=== PATIENT | female | born 1960 | race Caucasian/White ===

== ENCOUNTER 2016-03-07 08:56 | Day surgery (SDC) | payer BC ==
[2016-03-01 15:49] VITALS: BMI 33.6
[~2016-03-07 08:56] MED LIST: LACTATED RINGERS 1,000 ML IV SCH; LIDOCAINE 1% 20 ML VIAL (10MG/ML) FOR IV START INTRADERMA PRN
[2016-03-07 09:13] VITALS: RESP 16; TEMP 97.5
[2016-03-07] MEDS ORDERED: PROPOFOL 10 MG/ML 20 ML VIAL IV ONE (09:25)
--- NOTE | 2016-03-07 09:42 | P.PCN ---
Date of Procedure: 03/07/16 Procedure(s) Performed: BRIEF HISTORY: Patient is a 55-year-old pleasant white female, scheduled for an elective colonoscopy as a part of evaluation of left lower quadrant abdominal pain, change in bowel habits and intermittent rectal bleeding. PROCEDURE PERFORMED: Colonoscopy snare polypectomy. PREOPERATIVE DIAGNOSIS: Change in bowel habits and blood in the stool. IV sedation per Anesthesia. PROCEDURE: After informed consent was obtained, the patient, was brought into the endoscopy unit. IV conscious sedation was administered by Anesthesia under continuous monitoring. Initially the Olympus CF-160 flexible video colonoscope was then inserted in the rectum, gradually advanced into the cecum without any difficulty. Careful examination was performed as the scope was gradually being withdrawn. Ileocecal valve and the appendiceal orifice were visualized and appeared normal. Prep was excellent. Mucosa of the cecum, ascending colon, transverse colon, descending colon, sigmoid colon, and rectum appeared normal. Scattered sigmoid diverticulosis seen. In the proximal rectum there was a 1 cm polyp removed by snare polypectomy. Retroflexion was performed in the rectum and no lesions were seen. The patient tolerated the procedure well. IMPRESSION: 1 cm proximal rectal polyp status post polypectomy Scattered sigmoidal diverticulosis RECOMMENDATIONS: Findings of this examination were discussed with the patient as well as her family. She was advised to follow with the biopsy results. If the biopsy shows a tubular adenoma she can have a repeat colonoscopy in 5 years.
[2016-03-07 09:46] VITALS: PULSE 72
[2016-03-07 10:01] VITALS: BP 109/71
== END 2016-03-07 10:26 | disposition home or self-care (01) ==
LOC: ORWHC2ENDO 08:56
PROVIDERS: ATTEND Internal Medicine Gastroenterology
DX: D12.8 Benign neoplasm of rectum (principal); K57.30 Diverticulosis of large intestine without perforation or abscess without bleeding; E78.5 Hyperlipidemia, unspecified; F32.9 Major depressive disorder, single episode, unspecified; K21.9 Gastro-esophageal reflux disease without esophagitis; J45.909 Unspecified asthma, uncomplicated; Z79.82 Long term (current) use of aspirin; Z79.899 Other long term (current) drug therapy; Z88.1 Allergy status to other antibiotic agents
CPT/HCPCS: 88305; 45385; J2704

== ENCOUNTER → 2016-03-23 | Outpatient (CLI) | payer BC ==
--- NOTE | 2016-03-23 11:18 | US ---
EXAMINATION TYPE: US pelvic complete DATE OF EXAM: 03/23/2016 11:05 AM CLINICAL HISTORY: Pelvic Pain R10.2. Pt states LLQ pain TECHNIQUE: Transabdominal (TA) Date of LMP: 2000 EXAM MEASUREMENTS: Uterus: 7.9 x 3.1 x 3.3 cm Endometrial Stripe: 0.7 cm Right Ovary: 2.1 x 1.4 x 2.2 cm Left Ovary: 1.8 x 1.1 x 1.4 cm 1. Uterus: Anteverted Appeared wnl 2. Endometrium: wnl 3. Right Ovary: wnl 4. Left Ovary: wnl 5. Bilateral Adnexa: wnl 6. Posterior cul-de-sac: wnl No abnormality visualized to account for pt's symptoms IMPRESSION: Negative study
== END | disposition home or self-care (01) ==
LOC: RADUSWWP 10:16
PROVIDERS: ATTEND Internal Medicine
DX: R10.2 Pelvic and perineal pain (principal)
CPT/HCPCS: 76856

== ENCOUNTER 2018-01-04 08:55 | Emergency (ER) | payer BC, OTHER ==
[2018-01-04 09:15] VITALS: BP 110/66; PULSE 67; RESP 18; TEMP 98.3
--- NOTE | 2018-01-04 10:01 | ED ---
Eye Problem HPI - General Chief complaint: Eye Problems Stated complaint: rash on eye Time Seen by Provider: 01/04/18 09:19 Source: patient, RN notes reviewed, old records reviewed Mode of arrival: ambulatory Limitations: no limitations - History of Present Illness Initial comments: Patient is a 57-year-old female presents emergency Department chief complaint of. Take rash over bilateral upper eyelids lower eyelids. She was seen by medics breath started on antibiotic drops, steroids. She reports that she felt was getting somewhat better but after discontinuing steroid she reports that the rash week occur. Patient states that she has had no no exposures. She denies any other symptoms at this time. - Related Data Home Medications Medication Instructions Recorded Confirmed Aspirin 2 tab PO DAILY 06/09/14 03/01/16 PARoxetine [Paxil] 20 mg PO HS 06/09/14 03/01/16 Simvastatin [Zocor] 20 mg PO HS 06/09/14 03/01/16 Albuterol Inhaler [Ventolin Hfa 1 - 2 puff INHALATION Q6HR PRN 03/01/16 03/01/16 Inhaler] Omeprazole [PriLOSEC] 20 mg PO AC-BID 03/01/16 03/01/16 Previous Rx's Medication Instructions Recorded Erythromycin Ophth Oint [Romycin 1 applic BOTH EYES QID #1 tube 01/04/18 Ophth Oint] Ketotifen 0.025% Ophth Soln 1 drop BOTH EYES BID #1 bottle 01/04/18 [Zaditor] methylPREDNISolone Dose Pack 4 mg PO DIRECTED #21 package 01/04/18 [Medrol Dose Pack] Allergies Allergy/AdvReac Type Severity Reaction Status Date / Time ciprofloxacin [From Cipro] AdvReac Anaphylaxis Verified 01/04/18 09:14 ciprofloxacin HCl AdvReac Anaphylaxis Verified 01/04/18 09:14 [From Cipro] Review of Systems ROS Statement: Those systems with pertinent positive or pertinent negative responses have been documented in the HPI. ROS Other: All systems not noted in ROS Statement are negative. 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 C/O ABD PAIN AFTER BM, MUCOUS IN STOOL. HX Migraines. Actinic karatosis to scalp History of Any Multi-Drug Resistant Organisms: None Reported Past Surgical History: Section, Cholecystectomy, Orthopedic Surgery Additional Past Surgical History / Comment(s): C-Sections x 2, d and c, L shoulder arthroscopy Past Anesthesia/Blood Transfusion Reactions: No Reported Reaction Past Psychological History: Anxiety, Depression Smoking Status: Never smoker Past Alcohol Use History: Occasional Past Drug Use History: None Reported - Past Family History Daughter(s) Family Medical History: Cancer Father Family Medical History: Coronary Artery Disease (CAD), Myocardial Infarction ([place] ) Additional Family Medical History / Comment(s): Father had CABG, AAA repair, AICD, CCath with stenting. Mother Family Medical History: Hypertension, Thyroid Disorder General Exam - General Exam Comments Initial Comments: This is a 57-year-old female. Alert and oriented. Patient appears in no acute distress. Limitations: no limitations General appearance: alert, in no apparent distress Head exam: Present: atraumatic, normocephalic, normal inspection Eye exam: Present: PERRL, EOMI, periorbital swelling (Bilateral periorbital erythema and swelling, reports tenderness over the upper eyelid. Skin is flaking and dry appearing.), periorbital tenderness. Absent: normal appearance , scleral icterus, conjunctival injection ENT exam: Present: normal exam, mucous membranes moist Neck exam: Present: normal inspection. Absent: tenderness, meningismus, lymphadenopathy Respiratory exam: Present: normal lung sounds bilaterally. Absent: respiratory distress, wheezes, rales, rhonchi, stridor Cardiovascular Exam: Present: regular rate, normal rhythm, normal heart sounds. Absent: systolic murmur, diastolic murmur, rubs, gallop, clicks Back exam: Present: normal inspection Neurological exam: Present: alert, oriented X3, CN II-XII intact Psychiatric exam: Present: normal affect, normal mood Course Vital Signs 01/04/18 09:11 Temperature 98.3 F Pulse Rate 67 Respiratory 18 Rate Blood Pressure 110/66 O2 Sat by Pulse 98 Oximetry Medical Decision Making - Medical Decision Making 57-year-old female presents return today with a rash over bilateral upper eyelids. Patient appears to have blepharitis. Patient's visual acuity intact, eyes itself had no significant drainage or erythema. No pain with extra ocular movements or with bright lights. Funduscopic exam was unremarkable.Patient at this time will be started on oral steroid and in the attic ointment over the eye. Discussed falling up with ophthalmology and primary care physician. Patient agrees to treatment plan will comply. Return parameters were discussed. Discussed the differential rheumatologic disorders as well as possibility of rosacea. Disposition Clinical Impression: Blepharitis of both eyes Disposition: HOME SELF-CARE Condition: Good Instructions: Blepharitis (ED), Rosacea (ED) Additional Instructions: Patient advised to apply the ointment over the eyelid as directed. Follow-up with ophthalmology and primary care physician. Patient should take the steroids and continued antihistamines as prescribed. Return to the emergency department if any alarming signs or symptoms occur. Prescriptions: Erythromycin Ophth Oint [Romycin Ophth Oint] 1 applic BOTH EYES QID #1 tube Ketotifen 0.025% Ophth Soln [Zaditor] 1 drop BOTH EYES BID #1 bottle methylPREDNISolone Dose Pack [Medrol Dose Pack] 4 mg PO DIRECTED #21 package Is patient prescribed a controlled substance at d/c from ED?: No Referrals: Praveen Marquez MD [Primary Care Provider] - 1-2 days Zeferino Hoyt MD [STAFF PHYSICIAN] - 1-2 days Time of Disposition: 09:59
== END 2018-01-04 10:05 | disposition home or self-care (01) ==
LOC: EC 08:55
DX: H01.004 Unspecified blepharitis left upper eyelid (principal); H01.001 Unspecified blepharitis right upper eyelid; J45.909 Unspecified asthma, uncomplicated; E78.5 Hyperlipidemia, unspecified; F41.9 Anxiety disorder, unspecified; F32.9 Major depressive disorder, single episode, unspecified; Z79.82 Long term (current) use of aspirin; Z79.899 Other long term (current) drug therapy; Z88.1 Allergy status to other antibiotic agents
CPT/HCPCS: 99283

== ENCOUNTER → 2018-05-08 | Outpatient (CLI) | payer OTHER ==
--- NOTE | 2018-05-08 16:07 | XR ---
EXAMINATION TYPE: XR shoulder complete LT DATE OF EXAM: 05/08/2018 CLINICAL HISTORY: Left shoulder pain after a fall TECHNIQUE: Three views of the left shoulder are obtained. COMPARISON: None. FINDINGS: There is no acute fracture/dislocation evident in the left shoulder. Osseous cystic change and degenerative within the humeral head. The acromioclavicular and glenohumeral joint spaces appear within normal limits. The visualized ribs are intact and unremarkable. IMPRESSION: There is no acute fracture or dislocation in the left shoulder.
== END | disposition home or self-care (01) ==
LOC: RADXRMAIN 15:38
PROVIDERS: ATTEND Emergency Medicine
DX: S43.402A Unspecified sprain of left shoulder joint, initial encounter (principal)

== ENCOUNTER → 2018-05-23 | Outpatient (CLI) | payer OTHER ==
--- NOTE | 2018-05-25 00:01 | MR ---
EXAMINATION TYPE: MR shoulder LT wo con DATE OF EXAM: 05/23/2018 COMPARISON: Left shoulder x-ray May 08, 2018 HISTORY: Sprain of left shoulder joint per order. Fall twisting injury April 07, 2018 with pain and difficulty raising arm overhead, history of shoulder arthroscopy 2002 per patient. TECHNIQUE: Multiplanar, multisequence imaging of the left shoulder is performed without contrast. FINDINGS: Rotator Cuff: There is increased signal involving the distal supraspinatus and infraspinatus tendons. Articular surface involving the anterior two thirds fibers infraspinatus tendon is focal articular s urface tear measuring 9 mm AP diameter sagittal image 8 and 10 mm transversely coronal image 16. Subs capularis tendon is thickened with increased signal. Rotator cuff muscle bulk is preserved. Acromioclavicular Joint: Moderate narrowing with mild capsular hypertrophy and spurring is present. D istal acromion morphology is unremarkable. Underlying fat plane is maintained. Glenohumeral Joint: There is small to moderate glenohumeral joint effusion. Mild narrowing is seen. N o significant spurring is present. Labrum: The labrum appears grossly intact given limitation of non-arthrogram study. Biceps Tendon: The long head of biceps is in normal location within bicipital groove. Bone marrow signal: There is subchondral cystic change about the superolateral humeral head. Other: No additional significant abnormality is appreciated. IMPRESSION: Tendinosis of distal supraspinatus and infraspinatus tendons with high grade articular castillo rface tear involving the and infraspinatus tendon. Tendinosis of subscapularis tendon. [id number] te degenerative changes as detailed above.
== END | disposition home or self-care (01) ==
LOC: RADMRIMAIN 20:40
PROVIDERS: ATTEND Emergency Medicine
DX: S46.912A Strain of unspecified muscle, fascia and tendon at shoulder and upper arm level, left arm, initial encounter (principal); M19.012 Primary osteoarthritis, left shoulder; M67.814 Other specified disorders of tendon, left shoulder

== ENCOUNTER → 2019-08-24 | Outpatient (CLI) | payer OTHER ==
--- NOTE | 2019-08-24 14:40 | US ---
EXAMINATION TYPE: US kidneys/renal and bladder DATE OF EXAM: 08/24/2019 COMPARISON: CT 2010 CLINICAL HISTORY: R31.9 HEMATURIA,N39.0 UTI. Left flank pain. EXAM MEASUREMENTS: Right Kidney: 9.8 x 4.7 x 3.9 cm Left Kidney: 10.5 x 5.6 x 4.7 cm Right Kidney: No hydronephrosis or masses seen Left Kidney: No hydronephrosis or masses seen Bladder: wnl There is no evidence for hydronephrosis at this point in time. No nephrolithiasis is seen. No mykel s are identified. The urinary bladder not greatly distended. Bilateral ureteral jets are not seen. When scanning right kidney adjacent liver is heterogeneously hyperechoic consistent with diffuse fatt y infiltration. IMPRESSION: No hydronephrosis is noted bilaterally.
== END | disposition home or self-care (01) ==
LOC: RADUSWWP 14:01
PROVIDERS: ATTEND Internal Medicine
DX: N39.0 Urinary tract infection, site not specified (principal)
CPT/HCPCS: 76770

== ENCOUNTER → 2019-09-04 | Outpatient (CLI) | payer OTHER ==
--- NOTE | 2019-09-04 09:37 | MM ---
Reason for exam: screening (asymptomatic). Last mammogram was performed 6 years and 9 months ago. History: Patient is postmenopausal. Family history of breast cancer in paternal aunt. Physical Findings: A clinical breast exam by your physician is recommended on an annual basis and results should be correlated with mammographic findings. MG 3D Screening Mammo W/Cad Bilateral CC and MLO view(s) were taken. Prior study comparison: November 19, 2012, left diagnostic mammogram w/CAD. March 11, 2012, [facility] DIGITAL LEFT BREAST MAMMOGRAM w/CAD. The breast tissue is heterogeneously dense. This may lower the sensitivity of mammography. No significant changes when compared with prior studies. ASSESSMENT: Negative, BI-RAD 1 RECOMMENDATION: Routine screening mammogram of both breasts in 1 year.
== END | disposition home or self-care (01) ==
LOC: RADMAMWWP 07:12
PROVIDERS: ATTEND Internal Medicine
DX: Z12.31 Encounter for screening mammogram for malignant neoplasm of breast (principal)
CPT/HCPCS: 77063; 77067

== ENCOUNTER → 2020-07-25 | Outpatient (CLI) | payer OTHER ==
--- NOTE | 2020-07-26 09:38 | US ---
EXAMINATION TYPE: US kidneys/renal and bladder DATE OF EXAM: 07/25/2020 COMPARISON: 08/24/2019 CLINICAL HISTORY: M54.5 low back pain, R10.84 abd pain. EXAM MEASUREMENTS: Right Kidney: 9.6 x 4.3 x 4.6 cm Left Kidney: 10.6 x 5.3 x 4.7 cm Right Kidney: cyst at midpole measuring 1.0 x 0.7 x 0.9cm Left Kidney: No hydronephrosis or masses seen Bladder: wnl No hydronephrosis or shadowing renal calculi. Ureteral jets are not visualized. IMPRESSION: 1. No hydronephrosis or shadowing renal calculi. 2. Right renal cyst measuring 1 cm. 3. The ureteral jets are not visualized.
== END | disposition home or self-care (01) ==
LOC: RADUSWWP 16:02
PROVIDERS: ATTEND Internal Medicine
DX: N28.1 Cyst of kidney, acquired (principal)
CPT/HCPCS: 76770

== ENCOUNTER → 2021-07-26 | Outpatient (CLI) | payer MEDICAID ==
[2021-07-26 10:44] LABS: Basophils # (A) 0.08 X 10*3/uL (0.00-0.10); Basophils % (A) 1.1 %; Eosinophils # (A) 0.11 X 10*3/uL (0.04-0.35); Eosinophils % (A) 1.5 %; HCT 42.5 % (37.2-46.3); HGB 13.9 g/dL (12.0-15.0); Immature Grans, Automated 0.3 %; Lymphocytes # (A) 2.64 X 10*3/uL (0.90-5.00); Lymphocytes % (A) 36.6 %; MCH 29.3 pg (27.0-32.0); MCHC 32.7 g/dL (32.0-37.0); MCV 89.7 fL (80.0-97.0); Mean Platelet Volume 9.2 fL (9.5-12.2); Monocytes # (A) 0.51 X 10*3/uL (0.20-1.00); Monocytes % (A) 7.1 %; NRBC Per 100 WBC 0 /100 WBCS (0.0-0.0); Neutrophils # (A) 3.86 X 10*3/uL (1.80-7.70); Neutrophils % (A) 53.4 %; Platelet Count 348 X 10*3/uL (140-440); RBC 4.74 X 10*6/uL (4.10-5.20); RDW 12.8 % (11.5-14.5); WBC 7.22 X 10*3/uL (4.50-10.00)
[2021-07-26 12:16] LABS: ALT 26 U/L (8-44); AST 22 U/L (13-35); Albumin 4.4 g/dL (3.8-4.9); Albumin/Globulin Ratio 1.33 (1.60-3.17); Alkaline Phosphatase 68 U/L (41-126); BUN/Creat Ratio 19.67 Ratio (12.00-20.00); Blood Urea Nitrogen 17.7 mg/dL (9.0-27.0); Calcium 9.7 mg/dL (8.7-10.3); Carbon Dioxide 24.1 mmol/L (20.0-27.5); Chloride 105 mmol/L (96-109); Globulin 3.3 g/dL (1.6-3.3); Glucose 99 mg/dL (70-110); LDL Cholesterol,Calculated 121.3 mg/dL (0.0-131.0); Potassium 4.5 mmol/L (3.5-5.5); Sodium 139 mmol/L (135-145); Total Protein 7.7 g/dL (6.2-8.2)
== END | disposition home or self-care (01) ==
LOC: LABWHC1 07:25
PROVIDERS: ATTEND Family Medicine
DX: Z00.00 Encounter for general adult medical examination without abnormal findings (principal); M19.90 Unspecified osteoarthritis, unspecified site; E78.5 Hyperlipidemia, unspecified
CPT/HCPCS: 36415; 80053; 80061; 85025

== ENCOUNTER → 2021-11-17 | Outpatient (CLI) | payer MEDICAID ==
--- NOTE | 2021-11-17 14:09 | MR ---
EXAMINATION TYPE: MR cervical spine wo con DATE OF EXAM: 11/17/2021 COMPARISON: None HISTORY: Spondylosis, stenosis neck pain into left arm and wrist CONTRAST: Performed utilizing 0 mL intravenous Gadavist gadolinium contrast. TECHNIQUE: Multiplanar multiecho imaging on a 3.0 Tia magnet is performed through the cervical spin e. FINDINGS: The craniovertebral junction is normal. Vertebral body alignment is straightened. Spinal cord maintains normal signal throughout its visualized course including the area of compression post erior to C6-7 and to a mild degree C5-6. C7-T1: Minimal central bulge is present with anterior thecal sac compression. No cord contact is kiko dent. No spinal canal stenosis or neural foraminal stenosis present. C6-7: There is a large disc herniation across the endplate of C6-7. This is much greater into the lef t paracentral region. Correlate left-sided symptoms. Cord contact and cord deformity is evident. Spin al canal narrowing and displacement of the spinal contents towards the right or evident. Bilateral fo raminal stenosis is present... C5-6: Broad-based disc bulge is present with moderate intrathecal sac impression. This is greater to the right paracentral region and has cord contact and mild cord flattening. AP spinal canal stenosis is not present bilateral foraminal stenosis is present.. C4-5: Mild disc bulge has anterior thecal sac contact. This comes in close approximation with the spi nal cord. No spinal canal stenosis present. Mild right foraminal narrowing is present.. C3-4: Small central focal bulge is present with anterior thecal sac contact. No AP spinal canal steno sis. Neural foramen are patent.. C2-3: Small central spur or focal disc bulge is present. This comes in close approximation with the s lorena cord. No cord deformity or spinal canal stenosis present. Neural foramen are patent. IMPRESSIONS: 1. 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 Correlate with left radicular symptoms. 2. Moderate disc bulge C5-6 with right paracentral cord contact and flattening. 3. Additional small disc bulges without cord contact or deformity.
== END | disposition home or self-care (01) ==
LOC: RADMRIMAIN 12:56
PROVIDERS: ATTEND Nurse Practitioner Family
DX: M50.122 Cervical disc disorder at C5-C6 level with radiculopathy (principal); M47.22 Other spondylosis with radiculopathy, cervical region; M48.02 Spinal stenosis, cervical region
CPT/HCPCS: 72141

== ENCOUNTER 2021-12-16 04:45 | Emergency (ER) | payer MEDICAID ==
[2021-12-16 05:13] VITALS: RESP 18; TEMP 97.6
[2021-12-16] MEDS ORDERED: ORPHENADRINE 30 MG/ML 2 ML VIAL IM STA (05:37)
[2021-12-16] MEDS ORDERED: KETOROLAC 15 MG/ML 1 ML VIAL IM STA (05:37)
[2021-12-16] MEDS ORDERED: PREGABALIN 75 MG CAP PO STA (05:43)
[2021-12-16] MEDS ORDERED: predniSONE 20 MG TAB PO STA (05:43)
[2021-12-16] MEDS ORDERED: HYDROmorphone 1 MG/ML 1 ML SYRINGE IM STA (06:41)
--- NOTE | 2021-12-16 08:01 | ED ---
Back Pain HPI - General Chief Complaint: Back Pain/Injury Stated Complaint: Left shoulder pain, neck pain Time Seen by Provider: 12/16/21 04:53 Source: patient, family - History of Present Illness MD Complaint: back pain -: week(s) Similar Symptoms Previously: Yes Place: home Radiation: other (Left shoulder/arm) Severity: severe Quality: burning, aching Consistency: constant Improves With: none Worsens With: none Associated Symptoms: denies other symptoms - Related Data Home Medications Medication Instructions Recorded Confirmed Albuterol Inhaler [Ventolin Hfa 1 - 2 puff INHALATION RT-Q6H PRN 03/01/16 12/17/21 Inhaler] Acetaminophen [Tylenol] 650 mg PO Q4H PRN 12/17/21 12/17/21 Cyclobenzaprine [Flexeril] 5 mg PO TID PRN 12/17/21 12/17/21 Ibuprofen [Motrin] 800 mg PO Q8H PRN 12/17/21 12/17/21 Rosuvastatin Calcium 5 mg PO HS 12/17/21 12/17/21 Previous Rx's Medication Instructions Recorded HYDROcodone/APAP 5-325MG [[place] 1 tab PO Q4HR PRN 3 Days #18 tab 12/16/21 5-325] predniSONE 60 mg PO DAILY #30 tab 12/16/21 Allergies Allergy/AdvReac Type Severity Reaction Status Date / Time ciprofloxacin [From Cipro] Allergy Severe Anaphylaxis Verified 12/17/21 12:16 ciprofloxacin HCl Allergy Severe Anaphylaxis Verified 12/17/21 12:16 [From Cipro] Review of Systems ROS Statement: Those systems with pertinent positive or pertinent negative responses have been documented in the HPI. ROS Other: All systems not noted in ROS Statement are negative. Constitutional: Denies: fever, chills, weakness Respiratory: Denies: cough, dyspnea Cardiovascular: Denies: chest pain, palpitations, edema, syncope Gastrointestinal: Denies: abdominal pain, nausea, vomiting Genitourinary: Denies: dysuria, hematuria Musculoskeletal: Denies: back pain Skin: Denies: rash Neurological: Reports: paresthesias. 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 C/O ABD PAIN AFTER BM, MUCOUS IN STOOL. HX Migraines. Actinic karatosis to scalp History of Any Multi-Drug Resistant Organisms: None Reported Past Surgical History: Section, Cholecystectomy, Orthopedic Surgery Additional Past Surgical History / Comment(s): C-Sections x 2, d and c, L shoulder arthroscopy Past Anesthesia/Blood Transfusion Reactions: No Reported Reaction Past Psychological History: Anxiety, Depression Smoking Status: Never smoker Past Alcohol Use History: Occasional Past Drug Use History: None Reported - Past Family History Daughter(s) Family Medical History: Cancer Father Family Medical History: Coronary Artery Disease (CAD), Myocardial Infarction ([place]) Additional Family Medical History / Comment(s): Father had CABG, AAA repair, AICD, CCath with stenting. Mother Family Medical History: Hypertension, Thyroid Disorder General Exam General appearance: alert, in no apparent distress Head exam: Present: atraumatic, normocephalic Eye exam: Present: normal appearance. Absent: scleral icterus, conjunctival injection Neck exam: Present: normal inspection. Absent: tenderness, full ROM Respiratory exam: Present: normal lung sounds bilaterally. Absent: respiratory distress, wheezes, rales, rhonchi, stridor Cardiovascular Exam: Present: regular rate, normal rhythm. Absent: normal heart sounds Extremities exam: Present: normal inspection, full ROM, normal capillary refill. Absent: tenderness Back exam: Present: normal inspection. Absent: vertebral tenderness Neurological exam: Present: alert. Absent: motor sensory deficit Skin exam: Present: warm, dry, intact, normal color. Absent: rash Course Vital Signs 12/16/21 12/16/21 05:08 08:24 Temperature 97.6 F 97.6 F Pulse Rate 68 74 Respiratory 18 18 Rate Blood Pressure 143/90 116/83 O2 Sat by Pulse 96 96 Oximetry Medical Decision Making - Medical Decision Making This patient is 61-year-old woman presenting with left arm radicular pain. She has had symptoms going back for number weeks to months. She has been scheduled to see Dr. Rubio son regarding surgery. The patient states that the pain just had worsened over the course of today and into the night. She is not having new weakness of the arm. The neurologic exam does show that the patient has sensation. The strength is nearly symmetric, 5/5. Patient has had good relief of symptoms with medication. We discussed moe wick further care and follow-up as well as return parameters. Disposition Clinical Impression: Back pain Disposition: HOME SELF-CARE Condition: Fair Instructions (If sedation given, give patient instructions): Chronic Back Pain (DC) Prescriptions: HYDROcodone/APAP 5-325MG [[place] 5-325] 1 tab PO Q4HR PRN 3 Days #18 tab PRN Reason: Pain predniSONE 60 mg PO DAILY #30 tab Is patient prescribed a controlled substance at d/c from ED?: No Referrals: None,Stated [Primary Care Provider] - 1-2 days Pankaj Kruger DO [Doctor of Osteopathic Medicine] - 1-2 days
[2021-12-16 08:25] VITALS: BP 116/83; PULSE 74
== END 2021-12-16 08:25 | disposition home or self-care (01) ==
LOC: EC 04:45
DX: M54.9 Dorsalgia, unspecified (principal); J45.901 Unspecified asthma with (acute) exacerbation; E78.5 Hyperlipidemia, unspecified; Z79.51 Long term (current) use of inhaled steroids; Z79.899 Other long term (current) drug therapy; Z88.1 Allergy status to other antibiotic agents
CPT/HCPCS: 96372 ×3; 99283; J2360; J1170; J1885; J7512

== ENCOUNTER 2021-12-16 18:59 | Inpatient (IN) | payer MEDICAID ==
[2021-12-16] MEDS ORDERED: KETOROLAC 15 MG/ML 1 ML VIAL IVP STA (23:19)
[2021-12-16] MEDS ORDERED: HYDROmorphone 1 MG/ML 1 ML SYRINGE IVP STA (23:19)
--- NOTE | 2021-12-16 23:24 | ED ---
Upper Extremity HPI - General Chief Complaint: Extremity Injury, Upper Stated Complaint: left arm & back pain Time Seen by Provider: 12/16/21 23:16 Source: patient Mode of arrival: ambulatory Limitations: no limitations - History of Present Illness Initial Comments: This patient is 61-year-old woman with history of cervical disc problem. She has been having months of left shoulder/arm pain. She states it has been flaring up. She was seen here yesterday, had some decent relief and was discharged. She states that approximately 2 hours after leaving the pain had recurred and she is not having much relief at all with the prescribed medications. She does have appointment coming with Dr. Rubio'magdy and to discuss surgical options but this is not for a number weeks still. Patient denies loss of strength. There is some numbness. MD Complaint: Injury to:: left, arm -: week(s) Other Extremity Injury: Arm: Left, Shoulder: Left Handedness: right Place: home Improves With: none Worsens With: none Associated Symptoms: neck pain - Related Data Home Medications Medication Instructions Recorded Confirmed Albuterol Inhaler [Ventolin Hfa 1 - 2 puff INHALATION RT-Q6H PRN 03/01/16 12/17/21 Inhaler] Acetaminophen [Tylenol] 650 mg PO Q4H PRN 12/17/21 12/17/21 Cyclobenzaprine [Flexeril] 5 mg PO TID PRN 12/17/21 12/17/21 Ibuprofen [Motrin] 800 mg PO Q8H PRN 12/17/21 12/17/21 Rosuvastatin Calcium 5 mg PO HS 12/17/21 12/17/21 Previous Rx's Medication Instructions Recorded HYDROcodone/APAP 5-325MG [[place] 1 tab PO Q4HR PRN 3 Days #18 tab 12/16/21 5-325] predniSONE 60 mg PO DAILY #30 tab 12/16/21 Allergies Allergy/AdvReac Type Severity Reaction Status Date / Time ciprofloxacin [From Cipro] Allergy Severe Anaphylaxis Verified 12/17/21 12:16 ciprofloxacin HCl Allergy Severe Anaphylaxis Verified 12/17/21 12:16 [From Cipro] Review of Systems ROS Statement: Those systems with pertinent positive or pertinent negative responses have been documented in the HPI. ROS Other: All systems not noted in ROS Statement are negative. Constitutional: Denies: fever, chills Respiratory: Denies: cough, dyspnea Cardiovascular: Denies: chest pain, palpitations Gastrointestinal: Denies: abdominal pain Musculoskeletal: Denies: back pain Skin: Denies: rash Neurological: Reports: numbness, paresthesias. 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 C/O ABD PAIN AFTER BM, MUCOUS IN STOOL. HX Migraines. Actinic karatosis to scalp History of Any Multi-Drug Resistant Organisms: None Reported Past Surgical History: Section, Cholecystectomy, Orthopedic Surgery Additional Past Surgical History / Comment(s): C-Sections x 2, d and c, L shoulder arthroscopy Past Anesthesia/Blood Transfusion Reactions: No Reported Reaction Past Psychological History: Anxiety, Depression Smoking Status: Never smoker Past Alcohol Use History: Occasional Past Drug Use History: None Reported - Past Family History Daughter(s) Family Medical History: Cancer Father Family Medical History: Coronary Artery Disease (CAD), Myocardial Infarction ([place]) Additional Family Medical History / Comment(s): Father had CABG, AAA repair, AICD, CCath with stenting. Mother Family Medical History: Hypertension, Thyroid Disorder General Exam Limitations: no limitations General appearance: alert, in no apparent distress Head exam: Present: atraumatic, normocephalic Eye exam: Present: normal appearance Neck exam: Present: normal inspection. Absent: tenderness, meningismus Respiratory exam: Present: normal lung sounds bilaterally. Absent: respiratory distress, wheezes, rales, rhonchi, stridor Cardiovascular Exam: Present: regular rate, normal rhythm, normal heart sounds. Absent: systolic murmur, diastolic murmur, rubs, gallop Neurological exam: Present: alert. Absent: motor sensory deficit Skin exam: Present: warm, dry, intact, normal color. Absent: rash Course Vital Signs 12/16/21 12/17/21 20:45 06:29 Temperature 98.2 F Pulse Rate 89 70 Respiratory 18 14 Rate Blood Pressure 148/80 130/93 O2 Sat by Pulse 96 98 Oximetry Medical Decision Making - Lab Data Result diagrams: 12/19/21 05:33 12/19/21 05:33 Lab Results 12/16/21 12/16/21 Range/Units 23:43 23:43 WBC 13.3 H (3.8-10.6) k/uL RBC 4.55 (3.80-5.40) m/uL Hgb 13.8 (11.4-16.0) gm/dL Hct 39.5 (34.0-46.0) % MCV 86.9 (80.0-100.0) fL MCH 30.3 (25.0-35.0) pg MCHC 34.9 (31.0-37.0) g/dL RDW 12.9 (11.5-15.5) % Plt Count 375 (150-450) k/uL MPV 7.6 Neutrophils % 79 % Lymphocytes % 14 % Monocytes % 5 % Eosinophils % 0 % Basophils % 0 % Neutrophils # 10.5 H (1.3-7.7) k/uL Lymphocytes # 1.9 (1.0-4.8) k/uL Monocytes # 0.7 (0-1.0) k/uL Eosinophils # 0.0 (0-0.7) k/uL Basophils # 0.0 (0-0.2) k/uL Sodium 136 L (137-145) mmol/L Potassium 4.1 (3.5-5.1) mmol/L Chloride 100 (98-107) mmol/L Carbon Dioxide 23 (22-30) mmol/L Anion Gap 13 mmol/L BUN 17 (7-17) mg/dL Creatinine 0.79 (0.52-1.04) mg/dL Est GFR (CKD-EPI)AfAm >90 (>60 ml/min/1.73 sqM) Est GFR (CKD-EPI)NonAf 82 (>60 ml/min/1.73 sqM) Glucose 132 H (74-99) mg/dL Calcium 9.8 (8.4-10.2) mg/dL C-Reactive Protein <0.5 (<1.0) mg/dL Disposition Clinical Impression: Intractable back pain, Cervical radicular pain Disposition: ADMITTED IP TO THIS HOSP Condition: Fair Is patient prescribed a controlled substance at d/c from ED?: No
[2021-12-16 23:49] LABS: Basophils % (A) 0 %; Eosinophils % (A) 0 %; HCT 39.5 % (34.0-46.0); HGB 13.8 gm/dL (11.4-16.0); Lymphocytes # (A) 1.9 k/uL (1.0-4.8); Lymphocytes % (A) 14 %; MCH 30.3 pg (25.0-35.0); MCHC 34.9 g/dL (31.0-37.0); MCV 86.9 fL (80.0-100.0); Mean Platelet Volume 7.6; Monocytes # (A) 0.7 k/uL (0-1.0); Monocytes % (A) 5 %; Neutrophils # (A) 10.5 k/uL (1.3-7.7); Neutrophils % (A) 79 %; Platelet Count 375 k/uL (150-450); RBC 4.55 m/uL (3.80-5.40); RDW 12.9 % (11.5-15.5); WBC 13.3 k/uL (3.8-10.6)
[2021-12-17 00:01] LABS: African American GFR (CKD) >90 (>60 ml/min/1.73 sqM); Anion Gap 13 mmol/L; Blood Urea Nitrogen 17 mg/dL (7-17); C Reactive Protein <0.5 mg/dL (<1.0); Calcium 9.8 mg/dL (8.4-10.2); Carbon Dioxide 23 mmol/L (22-30); Chloride 100 mmol/L (98-107); Glucose 132 mg/dL (74-99); Non-African American GFR(CKD) 82 (>60 ml/min/1.73 sqM); Potassium 4.1 mmol/L (3.5-5.1); Sodium 136 mmol/L (137-145)
[2021-12-17] MEDS ORDERED: HYDROmorphone 1 MG/ML 1 ML SYRINGE IVP PRN (01:15)
[2021-12-17] MEDS ORDERED: NALOXONE 0.4 MG/ML 1 ML VIAL IV PRN (01:15)
[2021-12-17] MEDS ORDERED: MAG HYDROX/AL HYDROX/SIMETH 30 ML CUP PO PRN (01:15)
[2021-12-17] MEDS ORDERED: ACETAMINOPHEN TAB 325 MG TAB PO PRN (01:15)
[2021-12-17] MEDS: HYDROcodone/APAP 5-325MG 1 EACH TAB PO PRN ×4 (01:48→15:21)
[2021-12-17] MEDS: FAMOTIDINE 20 MG TAB PO SCH ×2 (07:51→20:34)
[2021-12-17] MEDS: SODIUM CHLORIDE 0.9% 1,000 ML IV SCH (07:54)
--- NOTE | 2021-12-17 11:58 | P.CNOR ---
History of Present Illness - [facility] Consult date: 12/17/21 Requesting physician: Mark Loomis Consult reason: other (Intractable cervical radicular pain) History of present illness: Patient is a 61-year-old female presenting to the emergency department late last night with a chief complaint of left upper extremity pain and neck pain. Patient was seen this morning at bedside. Patient says this neck pain and left arm pain became in August when she was in [place]. Patient says her and her family were hiking and patient woke up one night with intense pain going from the neck down the left arm. Patient says she has followed up with advanced o rthopedics in office this summer and has been on Lyrica and Flexeril since then. Patient says that the medication did seem to help with some of her arm pain. However, over the past month the pain has seemed to increase. Patient denies any new trauma/falls/injuries. Patient says she has tried a course of physical therapy, which she says has not been of great benefit. Patient says she did have an MRI of her cervical spine about a month ago. Patient says she did have a planned office visit with Dr. Kruger in office within the next few weeks, however, he shouldn't says the pain has increased to the point where she is not able to control her pain at home therefore she decided to come into the emergency department at [facility]. Patient currently states that the pain is in the left side of her neck and does radiate down her left arm on the backside. Patient mentions numbness and tingling and some weakness in the arm. Patient also mentions she does have some numbness and tingling in her hands specifically in the first second third digits. Patient uses the word itching to describe the pain in her left hand. Patient denies any other locations of pain. Patient denies chest pain, fever, chest breath, nausea, change in vision, loss of bowel/bladder control. Past Medical History Past Medical History: Asthma, Hyperlipidemia Additional Past Medical History / Comment(s): Mild Asthma induced by environme nt. C/O ABD PAIN AFTER BM, MUCOUS IN STOOL. HX Migraines. Actinic karatosis to scalp History of Any Multi-Drug Resistant Organisms: None Reported Past Surgical History: Section, Cholecystectomy, Orthopedic Surgery Additional Past Surgical History / Comment(s): C-Sections x 2, d and c, L shoulder arthroscopy x 2 Past Anesthesia/Blood Transfusion Reactions: No Reported Reaction Past Psychological History: Anxiety, Depression Smoking Status: Never smoker Past Alcohol Use History: Occasional Past Drug Use History: None Reported - Past Family History Daughter(s) Family Medical History: Cancer Father Family Medical History: Coronary Artery Disease (CAD), Myocardial Infarction ([place]) Additional Family Medical History / Comment(s): Father had CABG, AAA repair, AICD, CCath with stenting. Mother Family Medical History: Hypertension, Thyroid Disorder Medications and Allergies Home Medications Medication Instructions Recorded Confirmed Type Aspirin 2 tab PO DAILY 06/09/14 03/01/16 History PARoxetine [Paxil] 20 mg PO HS 06/09/14 03/01/16 History Simvastatin [Zocor] 20 mg PO HS 06/09/14 03/01/16 History Albuterol Inhaler [Ventolin Hfa 1 - 2 puff INHALATION Q6HR PRN 03/01/16 03/01/16 History Inhaler] Omeprazole [PriLOSEC] 20 mg PO AC-BID 03/01/16 03/01/16 History Erythromycin Ophth Oint [Romycin 1 applic BOTH EYES QID #1 tube 01/04/18 Rx Ophth Oint] Ketotifen 0.025% Ophth Soln 1 drop BOTH EYES BID #1 bottle 01/04/18 Rx [Zaditor] methylPREDNISolone Dose Pack 4 mg PO DIRECTED #21 package 01/04/18 Rx [Medrol Dose Pack] HYDROcodone/APAP 5-325MG [[place] 1 tab PO Q4HR PRN 3 Days #18 tab 12/16/21 Rx 5-325] predniSONE 60 mg PO DAILY #30 tab 12/16/21 Rx Allergies Allergy/AdvReac Type Severity Reaction Status Date / Time ciprofloxacin [From Cipro] AdvReac Anaphylaxis Verified 12/16/21 05:12 ciprofloxacin HCl AdvReac Anaphylaxis Verified 12/16/21 05:12 [From Cipro] Physical Examination Inspection: Negative for any open fractures, ecchymosis, erythema, ulcers. Sensation: Sensation is equal, symmetric, bilaterally intact throughout the upper and lower extremities on exam. Palpation: There is moderate TTP along the lower cervical spine at midline and on the left. Nontender to palpation throughout rest exam Range of motion: Patient does have full range of motion bilateral upper extremities and forward elevation shoulder abduction, external/internal rotation in elbow flexion/extension and wrist flexion/extension bilaterally. Patient has full range of motion bilateral lower extremities on exam Motor: 5/5 in all major motor groups in right upper extremity and bilateral lower extremity exam. Left upper extremity motor exam - 4/5 in stitch bonding machine tender helper strength. 4-/5 in resisted shoulder forward elevation, abduction, external/internal rotation, elbow flexion/extension and wrist flexion/extension Special tests: Negative Wali's bilaterally. Negative clonus bilaterally. Negative Reynaldo bilateral. Positive Spurling's on the left Neurovascular status: Radial pulses intact, 2+ bilaterally. Cap refill under 3 seconds digits in upper extremities. Results - Labs Labs: Abnormal Lab Results - Last 24 Hours (Table) 12/16/21 12/16/21 Range/Units 23:43 23:43 WBC 13.3 H (3.8-10.6) k/uL Neutrophils # 10.5 H (1.3-7.7) k/uL Sodium 136 L (137-145) mmol/L Glucose 132 H (74-99) mg/dL H & H 12/16/21 Range/Units 23:43 Hgb 13.8 (11.4-16.0) gm/dL Hct 39.5 (34.0-46.0) % Result Diagrams: 12/16/21 23:43 12/16/21 23:43 Assessment and Plan Assessment: 1. C6 to C7 disc herniation; cervical radiculopathy; left upper extremity weakness Plan: 1. C6 to C7 disc herniation; cervical radiculopathy; left upper extremity weakness - patient stable at bedside this morning. Patient does present with weakness to left upper extremity on exam. MRI of cervical spine was performed on 11/17/2021 and did demonstrate C6 to C7 disc herniation and some cord compression on the left side at C6 to C7. Patient does have worsening symptoms in the left arm at this time. At this time we'll start patient on steroidsDecadron 4 every 6h. Lyrica and Flexeril be started as well. We will continue to follow patient during her stay in hospital 2. Appreciate medical management 3. Pain management - Lyrica; Flexeril; Tylenol 4. DVT prophylaxis - mechanical 5. GI prophylaxis - senna 6. PT/OT - weightbearing as tolerated 7. Appreciate consult Time with Patient: Less than 30
[2021-12-17] MEDS ORDERED: DEXAMETHASONE SOD PHOSPHATE 4 MG/ML 1 ML VIAL IVP PRN (11:59)
[2021-12-17] MEDS: DEXAMETHASONE SOD PHOSPHATE 4 MG/ML 1 ML VIAL IVP SCH (17:16)
[2021-12-17] MEDS: PREGABALIN 75 MG CAP PO SCH (20:34)
[2021-12-17] MEDS: CYCLOBENZAPRINE 10 MG TAB PO SCH (20:34)
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
[2021-12-18] MEDS: HYDROcodone/APAP 5-325MG 1 EACH TAB PO PRN ×3 (00:23→19:09)
[2021-12-18] MEDS: DEXAMETHASONE SOD PHOSPHATE 4 MG/ML 1 ML VIAL IVP SCH ×5 (00:24→23:52)
[2021-12-18] MEDS: FAMOTIDINE 20 MG TAB PO SCH ×2 (08:54→20:26)
[2021-12-18] MEDS: PREGABALIN 75 MG CAP PO SCH ×2 (08:54→20:26)
[2021-12-18] MEDS: SODIUM CHLORIDE 0.9% 1,000 ML IV SCH (09:03)
[2021-12-18 11:39] LABS: Basophils # (A) 0.01 X 10*3/uL (0.00-0.10); Basophils % (A) 0.1 %; Eosinophils # (A) 0 X 10*3/uL (0.04-0.35); Eosinophils % (A) 0 %; HCT 38.8 % (37.2-46.3); HGB 12.7 g/dL (12.0-15.0); Immature Grans, Automated 0.4 %; Lymphocytes # (A) 0.96 X 10*3/uL (0.90-5.00); Lymphocytes % (A) 11.4 %; MCH 29.3 pg (27.0-32.0); MCHC 32.7 g/dL (32.0-37.0); MCV 89.4 fL (80.0-97.0); Mean Platelet Volume 9.5 fL (9.5-12.2); Monocytes # (A) 0.17 X 10*3/uL (0.20-1.00); NRBC Per 100 WBC 0 /100 WBCS (0.0-0.0); Neutrophils # (A) 7.25 X 10*3/uL (1.80-7.70); Neutrophils % (A) 86.1 %; Platelet Count 329 X 10*3/uL (140-440); RBC 4.34 X 10*6/uL (4.10-5.20); WBC 8.42 X 10*3/uL (4.50-10.00)
[2021-12-18 11:52] LABS: African American GFR (CKD) 83.9 (60.0-200.0); BUN/Creat Ratio 18.03 Ratio (12.00-20.00); Blood Urea Nitrogen 15.6 mg/dL (9.0-27.0); Calcium 9.4 mg/dL (8.7-10.3); Carbon Dioxide 23.9 mmol/L (20.0-27.5); Chloride 105 mmol/L (96-109); Glucose 122 mg/dL (70-110); Non-African American GFR(CKD) 72.4 (60.0-200.0); Potassium 4.6 mmol/L (3.5-5.5); Sodium 138 mmol/L (135-145)
--- NOTE | 2021-12-18 12:02 | P.PN ---
Subjective Progress Note Date: 12/18/21 Principal diagnosis: cervical radiculopathy; left upper extremity weakness Patient seen at bedside this morning lying semirecumbent position. Patient says she feels pain medication has been helping alleviate her symptoms. However, patient says when she gets up to the bathroom or raises her arm above her head she has increasing pain and difficulty. Patient says she still having weakness and numbness and tingling down the left arm. Patient denies chest pain, fever, shortness breath, nausea, vomiting, change in vision, loss of bowel/bladder control. Objective - Vital Signs Vital signs: Vital Signs Temp 97.9 F 12/18/21 04:49 Pulse 79 12/18/21 04:49 Resp 18 12/18/21 04:49 BP 106/67 12/18/21 04:49 Pulse Ox 94 L 12/18/21 04:49 FiO2 Intake & Output 12/17/21 12/18/21 12/18/21 18:59 06:59 18:59 Weight 91 kg Other: Voiding Method Toilet Toilet # Voids 2 2 - Exam Inspection: Negative for any open fractures, ecchymosis, erythema, ulcers. Sensation: Sensation is equal, symmetric, bilaterally intact throughout the upper and lower extremities on exam. Palpation: There is moderate TTP along the lower cervical spine at midline and on the left. Nontender to palpation throughout rest exam Range of motion: Patient does have full range of motion bilateral upper extremities and forward elevation shoulder abduction, external/internal rotation in elbow flexion/extension and wrist flexion/extension bilaterally. Patient has full range of motion bilateral lower extremities on exam Motor: 5/5 in all major motor groups in right upper extremity and bilateral lower extremity exam. Left upper extremity motor exam - 4/5 in donor technician strength. 4-/5 in resisted shoulder forward elevation, abduction, external/internal ro tation, elbow flexion/extension and wrist flexion/extension Special tests: Negative Wali's bilaterally. Negative clonus bilaterally. Negative Reynaldo bilateral. Positive Spurling's on the left Neurovascular status: Radial pulses intact, 2+ bilaterally. Cap refill under 3 seconds digits in upper extremities. - Labs CBC & Chem 7: 12/18/21 06:27 12/18/21 06:23 Assessment and Plan Assessment: 1. C5-C6 and C6 to C7 disc herniation; cervical radiculopathy; left upper extremity weakness Plan: 1. C5-C6 and C6 to C7 disc herniation; cervical radiculopathy; left upper extremity weakness; cervical radiculopathy; left upper extremity weakness - patient stable at bedside this morning. Patient does present with weakness to left upper extremity on exam. MRI of cervical spine was performed on 11/17/2021 and did demonstrate C6 to C7 disc herniation and some cord compression on the left side at C6 to C7. Patient does have worsening symptoms in the left arm at this time. Continue Decadron 4 every 6h. Surgery has been scheduled for Saturday12/20/2021 - C5-C6, C6-C7 ACDF. NPO beginning 12/20/2021 at 00:00 2. Appreciate medical management 3. Pain management - Lyrica; Flexeril; Tylenol 4. DVT prophylaxis - mechanical 5. GI prophylaxis - senna 6. PT/OT - weightbearing as tolerated 7. Appreciate consult Time with Patient: Less than 30
[2021-12-18] MEDS ORDERED: DEXTROSE 50% SYRINGE 50 ML IVP PRN ×2 (12:14)
[2021-12-18 12:39] LABS: Glucose,Whole Blood 188 mg/dL (70-110)
[2021-12-18] MEDS: INSULIN ASPART (NovoLOG) 100 UNIT/ML VIAL SQ SCH ×3 (13:02→20:27)
[2021-12-18] MEDS ORDERED: ALBUTEROL NEBULIZED 2.5 MG/3 ML INHALATION PRN (16:22)
[2021-12-18 16:30] LABS: Appearance,Urine Clear (Clear); Bilirubin,Urine Negative (Negative); Blood,Urine Negative (Negative); Color,Urine Yellow; Glucose,Urine (UA) 1+ (Negative); Ketones,Urine Trace (Negative); Leukocyte Esterase,Urine Small (Negative); Mucus,Urine Occasional /hpf; Nitrite,Urine Negative (Negative); PH, Urine 5.5 (5.0-8.0); Protein,Urine Trace (Negative); RBC,Urine 1 /hpf (0-5); Specific Gravity,Urine 1.033 (1.001-1.035); Squamous Epithelial Cell,Urine 1 /hpf (0-4); Urobilinogen,Urine <2.0 mg/dL (<2.0); WBC,Urine 13 /hpf (0-5)
--- NOTE | 2021-12-18 16:49 | XR ---
EXAMINATION TYPE: XR chest 1V portable DATE OF EXAM: 12/18/2021 4:40 PM COMPARISON: Chest radiographs from 06/09/2014 TECHNIQUE: XR chest 1V portable Frontal view of the chest. CLINICAL INDICATION:Female, 61 years old with history of pneumonia, high wbc; FINDINGS: Lungs/Pleura: Low lung volumes are present. There is no evidence of pleural effusion, focal consolida tion, or pneumothorax. Pulmonary vascularity: Unremarkable. Heart/mediastinum: Cardiomediastinal silhouette is enlarged and stable. Musculoskeletal: No acute osseous pathology. IMPRESSION: No acute cardiopulmonary disease/process.
[2021-12-18 17:07] LABS: Glucose,Whole Blood 165 mg/dL (70-110)
[2021-12-18 20:10] LABS: Glucose,Whole Blood 174 mg/dL (70-110)
[2021-12-18] MEDS: CYCLOBENZAPRINE 10 MG TAB PO SCH (20:26)
[2021-12-18] MEDS: ATORVASTATIN 10 MG TAB PO SCH (20:26)
[2021-12-18] MEDS: HEPARIN SODIUM,PORCINE/PF 5,000 UNIT/0.5 ML SYRINGE SQ SCH (20:26)
[2021-12-19] MEDS: DEXAMETHASONE SOD PHOSPHATE 4 MG/ML 1 ML VIAL IVP SCH ×4 (05:23→22:52)
--- NOTE | 2021-12-19 07:06 | P.PN ---
Progress Note - Text Progress Note Date: 12/19/21 Spine Surgery Clinical and Risk Review Winnie Feldman is a 61 yo female presenting for evaluation of Neck pain, LUE pain and weakness refractory to conservative measures. It was my pleasure to have seen and examined Winnie Feldman. In our visit today we have had a chance to go over subjective complaints, physical examination findings and treatments including the natural course history without intervention and various interventional options. 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 She has decreased LT sensation in the C-5 and C6-7 dermatomes. She has neck pain and +Spurlung's test on the left. Decreased ROM secondary to pain as well. I have explained to the patient that as their condition progresses it will cause further neurological deficits and eventual paralysis. Based on the patients imaging, physical exam, and the rapid progression and disabling nature of their symptoms, at this time I recommend surgery in the form or a: C5-7 anterior cervical discectomy and fusion I discussed the risk and benefits of this procedure at length with Winnie Feldman. The patient and her agreed to considered pursuing the procedure abovementioned. Prior to surgery, she should follow up with her PCP (Cardio, ID, IM etc) for clearance. Questions were invited and answered, and the patient wishes to proceed as outlined below. Currently, I am recommendin. C5-7 anterior cervical discectomy and fusion 2. surgical clearance 3. Review of surgical risks and benefits as well as an educational packet on the proposed surgical procedure. Risks: All surgical procedures come with inherent risks, including those related to positioning, anesthesia, intraoperative findings, and postoperative complications. It is important to understand that surgery does not come with any guarantee of a successful outcome as complications and adverse events are always possible. The patient was given a handout in office today discussing the surgical procedure and risks associated with the intervention, both of which were discussed with the patient. These risks include but are not limited to the following: * Experiencing same, different or even worse symptoms in back, neck, arms, or legs compared to before surgery. * Requiring further surgery or other forms of treatment presently or at some time in the future at same or other levels of the intended spine surgery. * On an extreme but fortunately relatively rare basis severe complication such as blindness, stroke, heart attack, temporary and/or permanent nerve inj ury, paralysis, coma, or may occur, sometimes without known explanation. * Surgical complications may include but are not limited to risk of infection, fluid accumulation in the surgical dissection site, including a seroma or hematoma, that requires additional surgery, wound drainage, bleeding, new numbness or weakness, vision changes/loss, spinal fluid leakage, non-healing and/or infected incision, headaches, difficulty or inability to swallow, hoarseness, hemopneumothorax, pneumothorax, impotence, retrograde ejaculation, vaginal dryness; injury to nerves, spinal cord, blood vessels, lymphatics or other vital organs (i.e., bowel injury, injury to the great vessels); heterotopic bone formation; complications related to the hardware such as screws, rods, cages including misplaced hardware, device failure, instrumentation at the wrong spine level, hardware fracture/breakage, or hardware loosening; vertebral failure of the spinal column above or below the newly placed hardware; retained surgical instrumentations or devices and the need for further surgery. * Medical risks of the planned spine surgery include but are not limited to generalized Infections to the whole body or local areas outside of the surgical site (sepsis), heart attack, bleeding, anaphylaxis, meningitis, seizure, epilepsy, hearing loss, burn gamez, laceration of the head or other areas of the body, bruising, hypersensitivity of the skin, bladder over distension; allergic reaction; shoulder injury related to positioning; fat, blood and air clots to other areas of the body like heart, lungs, brain; failure of internal organs such as lungs, kidneys, liver and excessive bleeding. If blood transfusions are necessary, note that transfusions may cause intolerance reactions such as anaphylaxis or other complex reactions. * Despite best efforts, the results of spine surgery might not heal in terms of bone, soft tissues such as skin, fascia, ligaments, and joints. Additionally, in order to achieve best possible results, spine surgery may be carried out beyond the initially planned levels and involve decompression, fusion including insertion of hardware at levels other than the original intended area of surgical interest change some portions of the procedure in order to ensure the best possible outcomes. * With spine surgery and spinal fusion, there are different off label uses of instrumentation (devices, implants and hardware) as well as biological substances (bone morphogenic proteins, demineralized bone matrix) as well as using extra bone from allograft sources (i.e. cadaver bone) or autograft (iliac crest bone, ribs, or the spine itself). The patient has been given information about these practices and their inherent risks and benefits. The patient has had a chance to review all the listed information, has been given print outs detailing this information, and has had all his/her questions answered to their satisfaction. It was my pleasure to have seen and examined Winnie Feldman. In our visit today we have had a chance to go over my understanding of our patient's current condition, the natural course history without intervention and various interventional options. Questions were invited and answered, and the patient wishes to proceed as outlined above. I have seen and examined the patient for 25 minutes and we have spent more than 50% of the time in repeat and detailed counseling about the patient's condition, its natural course history with out and as much as can be predicted with surgery and re-review of various surgical treatment options. In conclusion, Winnie Feldman and her requested we proceed with the above suggested surgery and are willing to accept risks and limitations of the suggested surgery as nature of the disease process and our best attempts at treatment for the condition. Thank you again for allowing us to be part of your patient's care. Please don't hesitate to contact me if you have any further questions. Signed and authenticated by: [facility]ank[facility] [address] [facility], [address] [address]
[2021-12-19 07:14] LABS: Glucose,Whole Blood 115 mg/dL (70-110)
[2021-12-19 08:57] LABS: Basophils # (A) 0.01 X 10*3/uL (0.00-0.10); Basophils % (A) 0.1 %; Eosinophils # (A) 0 X 10*3/uL (0.04-0.35); Eosinophils % (A) 0 %; HCT 37.2 % (37.2-46.3); HGB 12.6 g/dL (12.0-15.0); Immature Grans, Automated 0.5 %; Lymphocytes # (A) 1.21 X 10*3/uL (0.90-5.00); Lymphocytes % (A) 11.3 %; MCH 29.6 pg (27.0-32.0); MCHC 33.9 g/dL (32.0-37.0); MCV 87.3 fL (80.0-97.0); Mean Platelet Volume 9.3 fL (9.5-12.2); Monocytes # (A) 0.32 X 10*3/uL (0.20-1.00); NRBC Per 100 WBC 0 /100 WBCS (0.0-0.0); Neutrophils # (A) 9.15 X 10*3/uL (1.80-7.70); Neutrophils % (A) 85.1 %; Platelet Count 341 X 10*3/uL (140-440); RBC 4.26 X 10*6/uL (4.10-5.20); RDW 13.2 % (11.5-14.5); WBC 10.74 X 10*3/uL (4.50-10.00)
[2021-12-19 09:07] LABS: African American GFR (CKD) 92.2 (60.0-200.0); Anion Gap 9.2 mmol/L (10.00-18.00); BUN/Creat Ratio 22.38 Ratio (12.00-20.00); Blood Urea Nitrogen 17.9 mg/dL (9.0-27.0); Calcium 9.3 mg/dL (8.7-10.3); Carbon Dioxide 23.8 mmol/L (20.0-27.5); Non-African American GFR(CKD) 79.6 (60.0-200.0); Potassium 4.3 mmol/L (3.5-5.5)
--- NOTE | 2021-12-19 09:17 | PN ---
PROGRESS NOTE DATE OF SERVICE: 12/18/2021 HISTORY OF PRESENT ILLNESS: This is a 61-year-old woman who was admitted with left upper extremity radicular symptoms, had significant cervical radiculopathy. Patient is on steroids, white count is slightly elevated. UA is being checked. Dr. Kruger is planning surgery. No fever, no cough. PHYSICAL EXAMINATION: VITAL SIGNS: Pulse 79, blood pressure 120_/64, respirations 18. HEENT: Conjunctivae normal. NECK: No jugular venous distention. CARDIOVASCULAR: S1, S2 muffled. RESPIRATIONS: n ABDOMEN: Soft. NERVOUS SYSTEM: Nonfocal. LABS: Reviewed. ASSESSMENT: 1. Cervical radiculopathy and severe pain. 2. Increased WBC. 3. Rule out urinary tract infection. 4. Chronic neck pain. RECOMMENDATIONS AND DISCUSSION: Recommend to continue current medications and monitor blood sugars closely. Otherwise, repeat labs, UA with micro. Guarded prognosis. Further recommendations to follow. MMODL / IJN: [id number] / MTDAlexis
[2021-12-19] MEDS: HYDROcodone/APAP 5-325MG 1 EACH TAB PO PRN ×2 (10:03→22:52)
[2021-12-19] MEDS: HEPARIN SODIUM,PORCINE/PF 5,000 UNIT/0.5 ML SYRINGE SQ SCH ×2 (10:04→20:44)
[2021-12-19] MEDS: PREGABALIN 75 MG CAP PO SCH ×2 (10:04→20:44)
[2021-12-19] MEDS: FAMOTIDINE 20 MG TAB PO SCH ×2 (10:04→20:44)
[2021-12-19] MEDS: INSULIN ASPART (NovoLOG) 100 UNIT/ML VIAL SQ SCH ×4 (10:05→20:33)
[2021-12-19] MEDS: SODIUM CHLORIDE 0.9% 1,000 ML IV SCH ×2 (10:18→17:11)
[2021-12-19 11:29] LABS: Glucose,Whole Blood 96 mg/dL (70-110)
[2021-12-19 17:16] LABS: Glucose,Whole Blood 144 mg/dL (70-110)
[2021-12-19 20:14] LABS: Glucose,Whole Blood 141 mg/dL (70-110)
[2021-12-19] MEDS: CYCLOBENZAPRINE 10 MG TAB PO SCH (20:44)
[2021-12-19] MEDS: ATORVASTATIN 10 MG TAB PO SCH (20:44)
[2021-12-20] MEDS: DEXAMETHASONE SOD PHOSPHATE 4 MG/ML 1 ML VIAL IVP SCH ×4 (06:11→23:37)
[2021-12-20 07:07] LABS: Glucose,Whole Blood 110 mg/dL (70-110)
[2021-12-20 08:58] LABS: Basophils # (A) 0.02 X 10*3/uL (0.00-0.10); Basophils % (A) 0.2 %; Eosinophils # (A) 0 X 10*3/uL (0.04-0.35); Eosinophils % (A) 0 %; HCT 37.9 % (37.2-46.3); HGB 12.1 g/dL (12.0-15.0); Lymphocytes # (A) 1.15 X 10*3/uL (0.90-5.00); Lymphocytes % (A) 12.2 %; MCH 28.8 pg (27.0-32.0); MCHC 31.9 g/dL (32.0-37.0); MCV 90.2 fL (80.0-97.0); Mean Platelet Volume 9.9 fL (9.5-12.2); Monocytes # (A) 0.29 X 10*3/uL (0.20-1.00); Monocytes % (A) 3.1 %; NRBC Per 100 WBC 0 /100 WBCS (0.0-0.0); Neutrophils % (A) 83.5 %; Platelet Count 326 X 10*3/uL (140-440); RDW 13.2 % (11.5-14.5); WBC 9.45 X 10*3/uL (4.50-10.00)
[2021-12-20 09:06] LABS: African American GFR (CKD) 92.2 (60.0-200.0); Anion Gap 9.1 mmol/L (10.00-18.00); BUN/Creat Ratio 28.25 Ratio (12.00-20.00); Blood Urea Nitrogen 22.6 mg/dL (9.0-27.0); Calcium 8.9 mg/dL (8.7-10.3); Carbon Dioxide 24.9 mmol/L (20.0-27.5); Non-African American GFR(CKD) 79.6 (60.0-200.0); Potassium 4.5 mmol/L (3.5-5.5)
[2021-12-20] MEDS: FAMOTIDINE 20 MG TAB PO SCH ×2 (09:10→21:23)
[2021-12-20] MEDS: INSULIN ASPART (NovoLOG) 100 UNIT/ML VIAL SQ SCH ×4 (09:10→21:27)
[2021-12-20] MEDS: HEPARIN SODIUM,PORCINE/PF 5,000 UNIT/0.5 ML SYRINGE SQ SCH ×2 (09:10→21:23)
[2021-12-20] MEDS: PREGABALIN 75 MG CAP PO SCH ×2 (09:11→21:23)
[2021-12-20] MEDS: LACTATED RINGERS 1,000 ML IV SCH (09:24)
[2021-12-20 11:17] LABS: Glucose,Whole Blood 106 mg/dL (70-110)
--- NOTE | 2021-12-20 12:15 | PN ---
PROGRESS NOTE DATE OF SERVICE: 12/19/2021 SUBJECTIVE: This 61-year-old woman, who was admitted with cervical radiculopathy and severe pain, is scheduled for surgery. The patient has elevated white count, which is 10.74 at this time. The patient had a UA, which showed some 13 wbc's. A chest x-ray was reviewed, showed no acute abnormality. There is no history of any fever or rigors. OBJECTIVE: VITAL SIGNS: Pulse is 71, blood pressure 104/68, respirations 16. HEENT: Conjunctivae normal. NECK: No JVD. CARDIOVASCULAR: S1, S2. RESPIRATION: Breath sounds diminished at the bases. A few scattered rhonchi. ABDOMEN: Soft. NERVOUS SYSTEM: Nonfocal. LABORATORY DATA: Reviewed. ASSESSMENT: 1. Cervical radiculopathy and severe pain. 2. Increased WBC. 3. Possible mild urinary tract infection. 4. Chronic back pain. RECOMMENDATIONS: I recommend to continue current I would recommend a short course of empiric antibiotics because of impending surgery, and otherwise, we will obtain the cultures. Continue the rest of the medications. Repeat labs tomorrow. Further recommendations to follow. MMODL / IJN: [id number] / MTDAlexis
[2021-12-20] MEDS ORDERED: LACTATED RINGERS 1,000 ML IV ONE ×3 (12:25→12:28)
[2021-12-20] MEDS ORDERED: ONDANSETRON 4 MG/2 ML VIAL ONE (12:34)
[2021-12-20] MEDS ORDERED: ONDANSETRON 4 MG/2 ML VIAL IVP ONE (12:50)
[2021-12-20] MEDS ORDERED: KETAMINE 10 MG/ML 20 ML VIAL ONE (12:58)
[2021-12-20] MEDS ORDERED: PROPOFOL 10 MG/ML 20 ML VIAL IV ONE (12:58)
[2021-12-20] MEDS ORDERED: LIDOCAINE 2% INJ 20 MG/ML (2 ML VIAL) ONE (12:58)
[2021-12-20] MEDS ORDERED: fentaNYL (PF) 50 MCG/ML 2 ML AMP ONE (12:58)
[2021-12-20] MEDS ORDERED: SUCCINYLCHOLINE CHLORIDE 200 MG/10 ML VIAL IV ONE (12:58)
[2021-12-20] MEDS ORDERED: ePHEDrine 50 MG/ML 1 ML VIAL ONE (12:58)
[2021-12-20] MEDS ORDERED: MIDAZOLAM 2 MG/2 ML VIAL ONE (12:58)
[2021-12-20] MEDS ORDERED: TRANEXAMIC ACID IN NACL,ISO-OS 1,000 MG in SALINE 1 100ML.BAG IVPB ONE ×3 (13:55→15:28)
[2021-12-20] MEDS ORDERED: SENNOSIDES-DOCUSATE SODIUM 1 EACH TAB PO PRN (14:03)
[2021-12-20] MEDS ORDERED: HYDROmorphone 0.5 MG/0.5 ML SYRINGE IVP PRN (14:03)
[2021-12-20] MEDS ORDERED: HYDROmorphone 1 MG/ML 1 ML SYRINGE IVP PRN (14:03)
[2021-12-20] MEDS ORDERED: THROMBIN (BOVINE) 5,000 UNIT VIAL TOPICAL ONE (14:23)
[2021-12-20] MEDS ORDERED: GELATIN SPONGE,ABSORB (LARGE) 1 EACH SPONGE MISCELLANE ONE (14:23)
--- NOTE | 2021-12-20 15:55 | XR ---
Intraoperative/procedural fluoroscopic services were provided for cervical spinal fusion. Total fluor oscopy time is 28 seconds with a total of 6 submitted images to PACS. Please see the operative note f or further details.
[2021-12-20] MEDS ORDERED: HYDROmorphone 0.5 MG/0.5 ML SYRINGE IVP ONE ×3 (16:09→16:38)
--- NOTE | 2021-12-20 16:27 | FL ---
Intraoperative/procedural fluoroscopic services were provided. Total fluoroscopy time is 28 seconds w ith a total of 6 submitted images to PACS. Please see the operative/procedural note for further detai ls.
[2021-12-20] MEDS ORDERED: fentaNYL (PF) 50 MCG/ML 2 ML AMP IVP ONE ×2 (16:50→17:00)
[2021-12-20 18:09] LABS: Glucose,Whole Blood 121 mg/dL (70-110)
[2021-12-20 18:29] VITALS: RESP 18
[2021-12-20] MEDS: HYDROcodone/APAP 5-325MG 1 EACH TAB PO PRN (19:30)
[2021-12-20 20:12] LABS: Glucose,Whole Blood 112 mg/dL (70-110)
[2021-12-20] MEDS: ATORVASTATIN 10 MG TAB PO SCH (21:23)
[2021-12-20] MEDS: CYCLOBENZAPRINE 10 MG TAB PO SCH (21:23)
--- NOTE | 2021-12-20 23:29 | CT ---
EXAMINATION TYPE: CT cervical spine wo con DATE OF EXAM: 12/20/2021 COMPARISON: None HISTORY: s/p c5-c6 c6-c7 Neck pain CT DLP: 874.10 mGycm Automated exposure control for dose reduction was used. Images obtained from the skull base to T1 vertebra without contrast. The cervical Normal alignment. There is plate with screws fusing anteriorly the cervical spine from C5 to C7. The posterior elements are intact. No compression fracture. Prevertebral soft tissues are intact. The sku ll base is intact. There is normal aeration of the mastoid sinuses. There is anterior soft tissue air in the neck from the recent surgery. There is a drain in the anterior neck on the right side. No pat hologic fluid collection identified. IMPRESSION: Anterior cervical spine fusion surgery. No fracture. No complicating process.
[2021-12-20] MEDS: SODIUM CHLORIDE 0.9% 1,000 ML IV SCH (23:43)
[2021-12-21] MEDS: HYDROcodone/APAP 5-325MG 1 EACH TAB PO PRN ×2 (04:35→08:50)
[2021-12-21 04:40] VITALS: BP 119/77; PULSE 69; TEMP 98.2
[2021-12-21] MEDS: DEXAMETHASONE SOD PHOSPHATE 4 MG/ML 1 ML VIAL IVP SCH (05:58)
[2021-12-21 07:09] LABS: Glucose,Whole Blood 114 mg/dL (70-110)
--- NOTE | 2021-12-21 08:44 | P.PN ---
Subjective Progress Note Date: 12/21/21 Principal diagnosis: cervical radiculopathy left upper extremity weakness Patient seen and examined at bedside. Patient was sitting up in chair tolerating coffee. Patient denies any difficulty with swallowing. She reports relief of her upper extremity symptoms since the procedure. She states she has mild numbness in the first 3 digits of left hand that seem to be improving. Patient states that pain is managed on current regimen. Surgical dressing change and TIFFANY drain removed. Patient tolerated well. She denies any f/c/sob/cp. Objective - Vital Signs Vital signs: Vital Signs Temp 98.2 F 12/21/21 04:40 Pulse 69 12/21/21 04:40 Resp 18 12/21/21 04:40 BP 119/77 12/21/21 04:40 Pulse Ox 92 L 12/21/21 04:40 FiO2 Intake & Output 12/20/21 12/21/21 12/21/21 18:59 06:59 18:59 Intake Total 1750 120 Output Total 250 Balance 1500 120 Intake: IV 1750 Oral 120 Output: Urine 150 Estimated Blood Loss 100 Other: Voiding Method Toilet - Exam Physical Examination General: The patient is awake and alert, in no acute distress Skin: Skin is warm and dry with no obvious rashes or lesions. Hairy patches absent, no dorsal skin dimples, no cafe au lait spots. Surgical incision to anterior cervical region, dressing CDI. Eye: Pupils are equal, round and reactive to light, extra-ocular movements are intact; there is normal conjunctiva bilaterally. Neck: The neck is supple, there is slight tenderness and ROM limited due to pain and stiffness from procedure. Cardiovascular: There is a regular rate and rhythm. No murmur, rub or gallop is appreciated. Respiratory: Lungs are clear to auscultation, respirations are non-labored, jodi ath sounds are equal. Gastrointestinal: Soft, non-distended, non-tender abdomen . Back: There is no tenderness to palpation in the midline, paralumbar, parathoracic or buttocks region. There is no obvious deformity . Musculoskeletal: Muscle strength 5/5 in all major muscle groups in BLE and RUE. 4/5 in LUE. Neurological: CN 2-12 intact. There are no obvious motor or sensory deficits. Movement and coordination equal and intact. Sensory exam to light touch intact C5-T1 and intact from L2-S1. Reflexes 2/4 in bilateral upper and lower extremities. Negative Hoffmans, babinski, and clonus signs. Psychiatric: Cooperative, appropriate mood & affect, normal judgment. - Labs CBC & Chem 7: 12/20/21 04:53 12/20/21 04:53 Labs: Abnormal Lab Results - Last 24 Hours (Table) 12/20/21 12/20/21 12/20/21 Range/Units 04:53 04:53 18:07 MCHC 31.9 L (32.0-37.0) g/dL Immature Gran # 0.09 H (0.00-0.04) X 10*3/uL Neutrophils # 7.90 H (1.80-7.70) X 10*3/uL Eosinophils # 0 L (0.04-0.35) X 10*3/uL Anion Gap 9.10 L (10.00-18.00) mmol/L BUN/Creatinine Ratio 28.25 H (12.00-20.00) Ratio Glucose 140 H (70-110) mg/dL POC Glucose (mg/dL) 121 H (70-110) mg/dL 12/20/21 12/21/21 Range/Units 20:10 07:07 MCHC (32.0-37.0) g/dL Immature Gran # (0.00-0.04) X 10*3/uL Neutrophils # (1.80-7.70) X 10*3/uL Eosinophils # (0.04-0.35) X 10*3/uL Anion Gap (10.00-18.00) mmol/L BUN/Creatinine Ratio (12.00-20.00) Ratio Glucose (70-110) mg/dL POC Glucose (mg/dL) 112 H 114 H (70-110) mg/dL Assessment and Plan Assessment: s/p Post OP Day 1: C5-C6, C6-C7 ACDF C5-C6 and C6 to C7 disc herniation cervical radiculopathy left upper extremity weakness Plan: Plan: -Appreciate executive search consultant and team management. -Activity: Ambulate QID, OOB all meals, up and about, limit lifting bending twisting to less than 5 lbs. Use walker or cane if needed for stability. -Daily PT/OT, increase ambulation strength and balance. -Soft collar when up and about, not needed in bed or chair -Pain control: Adequate at this time -Meds: reviewed -GI ppx: senna, Miralax -DVT PPX: Scds, TEDS -Hygiene: Shower today. Maintain dressing clean and dry. -Encourage IS 10x/hr -Dispo: Anticipate discharge home today with homecare *I reviewed and discussed this case with my attending Dr. Kruger, whom has reviewed this chart and films and is in agreement with assessment and plan of care as outlined above. I have personally seen and examined the patient, performed the documentation and the assessment and plan as written. Number of minutes spent on the visit: 20m.
[2021-12-21] MEDS: FAMOTIDINE 20 MG TAB PO SCH (08:52)
[2021-12-21] MEDS: PREGABALIN 75 MG CAP PO SCH ×2 (08:52→08:53)
[2021-12-21] MEDS: HEPARIN SODIUM,PORCINE/PF 5,000 UNIT/0.5 ML SYRINGE SQ SCH (08:54)
[2021-12-21] MEDS: INSULIN ASPART (NovoLOG) 100 UNIT/ML VIAL SQ SCH (08:54)
[2021-12-21] MEDS: LACTATED RINGERS 1,000 ML IV SCH (08:55)
--- NOTE | 2021-12-21 09:02 | P.DS ---
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 They underwent appropriate preoperative care and were willing to undergo the intended procedure. They underwent a successful C5-C6, C6-C7 ACDF, were recovered appropriately and sent to the floor. While on the floor they worked with physical therapy, occupational therapy and nursing to enhance their recovery experience. Their pain was well controlled through their stay and they were started on appropriate medications, DVT ppx modalities, activity and di etary needs. Daily labs were monitored closely, and transfusions were only used when necessary. Medicine as well as other consulting services have made their input and have helped with our team approach and multidisciplinary care. PT milestones have been met and passed and they have made the recommendation of home for this patient and treating providers agree with this care path. The patient will be discharged home with appropriate medications, instructions and follow-up information and in stable condition. Patient Condition at Discharge: Good Plan - Discharge Summary Discharge Rx Participant: Yes New Discharge Prescriptions: New cefaDROXiL [Duricef] 500 mg PO Q12HR 3 Days #6 cap Cyclobenzaprine [Flexeril] 5 mg PO TID #90 tablet Pregabalin [Lyrica] 150 mg PO BID #60 cap HYDROcodone/APAP 5-325MG [[place] 5-325] 1 tab PO Q4HR PRN #56 tab PRN Reason: Pain No Action Albuterol Inhaler [Ventolin Hfa Inhaler] 1 - 2 puff INHALATION RT-Q6H PRN PRN Reason: Shortness Of Breath predniSONE 60 mg PO DAILY #30 tab Acetaminophen [Tylenol] 650 mg PO Q4H PRN PRN Reason: Pain Or Fever > 100.5 Cyclobenzaprine [Flexeril] 5 mg PO TID PRN PRN Reason: Muscle Pain HYDROcodone/APAP 5-325MG [[place] 5-325] 1 tab PO Q4HR PRN 3 Days #18 tab PRN Reason: Pain Rosuvastatin Calcium 5 mg PO HS Ibuprofen [Motrin] 800 mg PO Q8H PRN PRN Reason: Pain Discharge Medication List Albuterol Inhaler [Ventolin Hfa Inhaler] 1 - 2 puff INHALATION RT-Q6H PRN 03/01/16 [History] HYDROcodone/APAP 5-325MG [[place] 5-325] 1 tab PO Q4HR PRN 3 Days #18 tab 12/16/21 [Rx] predniSONE 60 mg PO DAILY #30 tab 12/16/21 [Rx] Acetaminophen [Tylenol] 650 mg PO Q4H PRN 12/17/21 [History] Cyclobenzaprine [Flexeril] 5 mg PO TID PRN 12/17/21 [History] Ibuprofen [Motrin] 800 mg PO Q8H PRN 12/17/21 [History] Rosuvastatin Calcium 5 mg PO HS 12/17/21 [History] Cyclobenzaprine [Flexeril] 5 mg PO TID #90 tablet 12/21/21 [Rx] HYDROcodone/APAP 5-325MG [[place] 5-325] 1 tab PO Q4HR PRN #56 tab 12/21/21 [Rx] Pregabalin [Lyrica] 150 mg PO BID #60 cap 12/21/21 [Rx] cefaDROXiL [Duricef] 500 mg PO Q12HR 3 Days #6 cap 12/21/21 [Rx] Follow up Appointment(s)/Referral(s): Kalia Sanchez MD [REFERRING] - 01/08/22 2:30 pm Pankaj Kruger DO [Doctor of Osteopathic Medicine] - 2 Weeks Activity/Diet/Wound Care/Special Instructions: Spine Discharge and Recovery Instructions Date of Surgery: 12/20/2021 Diagnosis: C5-C6, C6-C7 HNP Procedure: C5-C6, C6-C7 ACDF Medications: See medication list All medication refills should be obtained through your primary care doctor or your clinic spine surgeon. Please discuss prescription refills at your follow up appointment. Do not call the hospital for medication refills. Dressing: Leave your dressing in place for a total of 5 days post operatively. Then you may remove your dressing and leave open to air. Keep the area clean and if not able to keep area clean, then cover with sterile gauze and tape. Showering: You may shower 3 days after your procedure allowing soap and water to run over incision. Do not scrub. Do not soak. Blot dry. Follow up: Please confirm a follow up appointment with your surgeon 3 weeks post operatively. Please make an appointment to follow up with your PCP in 1-2 weeks after surgery for evaluation 3 phase, 3-week plan POST OP WEEKS 1-3 1. Lifting/carrying/pushing/pulling limited to less than 5 pounds. 2. Do not sit for longer than 15 minutes at one time. Get up and walk around. Prolonged sitting is NOT advised. If you lay down, see if you can tolerate laying down on you front (belly side) 3. Walk for periods of 15 minutes = 1 mile but no longer; do it multiple times times each day. 4. Ice your low back after activity. POST OP WEEKS 3-6 1. Lifting limited to less than 20 pounds. 2. Do not sit for longer than 30 minutes at a time. Frequently change p ositions. Use a sit-to stand workstation or take frequent breaks from sitting if you have returned to work. 3. Walk for 30 minutes each day. If possible, do these three or more times a day POST OP WEEKS 6+ At your 6-week appointment we will give you a physical therapy referral to focus on a core stabilization and strengthening program. You should also work on leg & buttock strengthening, hamstring & quadriceps stretching, and continue a low impact aerobic activity program such as swimming, walking, or riding a stationary bicycle. During the initial 6 weeks after your surgery, you are at the highest risk of re-injuring your spine. You should generally avoid BLTs (bending, lifting and twisting combination motions) and follow the above guidelines to reduce the chance of reinjury. You can anticipate post op appointments in our office at approximately 3 weeks and 6 weeks after your surgery. INCISION CARE: If your incision is not draining you do NOT need to cover it with a dressing. Keep your incision clean, dry and intact. In most cases, we apply skin glue, se or sutures to the incision at the time of surgery. This will be like a crust or have the appearance of a scab and will fall off in time on its own. The stitches or se need to be removed at 3 weeks post op appointment. You may begin to shower 3 days after surgery (this allows the glue to renteria well). However, please avoid scrubbing the incision site or peeling off any of the skin glue. This will ensure optimal healing of your incision. Also, during this time avoid soaking the incision area in water - this includes swimming pools, hot tubs or baths. No ointments, lotions or oils on the incision until your surgeon allows. Leave se, sutures or glue in place. Neurological dysfunction that comes on suddenly can also be a sign of a stroke. Below some common symptoms of a stroke are listed: B - balance difficulty such as sudden onset walking or leaning to one side - NEW E - eye problem such as sudden double vision or trouble seeing on one side - NEW F - Facial weakness or numbness on one side - NEW A - Arm or leg weakness or numbness on one side - NEW S - Slurred speech or difficulty with word finding - NEW T - Time is BRAIN! Call 911 as soon as you recognize these symptoms Diet: Consume a regular diet rich in vegetables and lean protein such as chicken or fish. You should consume in a ratio of approximately 20% fats|40% carbohydrates|40%protein. Vegetables, sweet potatoes, brown rice or quinoa are examples of good carbohydrates. Chips, white bread, cookies and sweets/sugar are examples of bad carbohydrates. Limit your bad carbs, go wild with good carbs. "Life's Simple 7" Guidelines as per [place] [employer] These will help you reclaim your life after surgery and rug cutter helper in your recovery, keeping in mind your restrictions. (1) Get Active. Physical activity can help people lose weight, control high blood pressure and cholesterol, feel emotionally better, and sleep better. (2) Control Cholesterol. Avoid a diet high in saturated fat, trans fat, & cholesterol. Limit whole milk & cream, ice cream, butter, egg yolks, processed meats (like sausage and hot dogs), and fatty meats. Choose healthy foods that are low in saturated fat, trans fat and cholesterol which include: Fruits and vegetables, fiber rich grain products (like whole grain pasta and brown rice), lean meat such as chicken, fish, nuts, seeds, and legumes. (3) Eat Better. Eat small portions. Shop at the grocery with a list and do not stray from it. Tips for a healthy diet include: Limit sodium intake to less than 1500mg daily, avoid prepackaged, processed, and fast foods, choose a diet rich in fruits, vegetables, and whole grain, high fiber foods, and limit saturated & cholesterol in your diet. (4) Manage Blood Pressure. If you have high blood pressure, you should have a cuff at home so that you can check your blood pressure regularly. Be sure you have a good cuff. An arm one is generally better than a wrist one. Bring the cuff to a doctor's appointment to validate that the measurements that your cuff are taking are accurate. Take your blood pressure twice daily when you are sitting down and relaxing. Record the numbers in a log and bring this log with you to your doctors' appointments. (5) Lose Weight if your BMI is above 25. A healthy BMI is between 19-25. To calculate Your BMI, you may use a Standard BMI Calculator on the NIH BMI website: <www.nhlbi.nih.gov/guidelines/obesity/BMI/bmicalc.htm>. Weigh oneself daily. If you are overweight, set a goal to lose weight. A pound a week loss if needed is a good target. (6) Reduce Blood Sugar. Limit foods and liquids with "added sugars." (Added sugars include sucrose, fructose, glucose, maltose, dextrose, high fructose corn syrup, corn syrup, concentrated fruit juice and honey). (7) Stop Smoking. If you smoke, quitting smoking is one of the best things that you can do for your health. Smoking increases your risk of heart attack, stroke, and peripheral vascular disease, which is a build-up of plaque in your arteries. Please discard all the cigarettes and lighters in your house. Have a plan for what you will do when you have the urge to smoke. Direct and second- hand smoke shortens your life as well as the lives of your family, friends and others around you. For your health and the health of those around you, please consider quitting! Proper Bending Body Mechanics: Maintain a wide stance with one foot slightly in front of the other. Keep your back straight. Bend utilizing the strength in your hips and knees. Do not bend at the waist. Maintain the lifted object at your waist-level close to your body. Avoid lifting weight that causes immediately pain or pain anywhere in the body afterwards. Smoking/Nicotine If there was ever one thing that you could do to increase your overall health, decrease your risk of cardiovascular problems by about 39% the second you make the choice, it is to STOP SMOKING. Your body's most instant gratification is the second you stop smoking. We have all heard the studies, read the articles but it is true, smoking is extremely bad for your overall health, and moreover it is detrimental to your bone health. Nicotine, IN ANY FORM, kills bone cells, prevents your body from healing fractures, and significantly prolongs healing after surgery. In spine surgery specifically, it increases your risk of not healing your bones to create a fusion and increases your risk of having a revision surgery due to this up to 60%. I know it is hard. I know it feels impossible. But there are ways. Take control of your life. We are here to help you through it. And when you are ready, ask us and we can direct you to help if you desire. Use the START Plan to Quit Smoking (please visit the [employer] website listed below for more information): S = Set a quit date. Choose a date within the next 2 weeks, so you have enough time to prepare without losing your motivation to quit. If you mainly smoke at work, quit on the weekend, so you have a few days to adjust to the change. T = Tell family, friends, and co-workers that you plan to quit. Let your friends and family in on your plan to quit smoking and tell them you need their support and encouragement to stop. Look for a quit kelvin who wants to stop smoking as well. You can help each other get through the rough times. A = Anticipate and plan for the challenges you'll face while quitting. Most people who begin smoking again do so within the first 3 months. You can help yourself make it through by preparing ahead for common challenges, such as nicotine withdrawal and cigarette cravings. R = Remove cigarettes and other tobacco products from your home, car, and work. Throw away all your cigarettes (no emergency pack!), lighters, ashtrays, and matches. Wash your clothes and freshen up anything that smells like smoke. Shampoo your car, clean your drapes and carpet, and steam your furniture. T = Talk to your doctor about getting help to quit. Your doctor can prescribe medication to help with withdrawal and suggest other alternatives. If you can't see a doctor, you can get many products over the counter at your local pharmacy or grocery store, including the nicotine patch, nicotine lozenges, and nicotine gum. Resources for Quitting Smoking: <https: //www.[place].gov/documents/[place] [facility]/Quit_Tobacco_Resources_for_patients_313480_7.p df> Supplementation: Take recommended dosages of Vitamin D and Calcium to help fortify your bones and help them to heal. See your health maintenance packet for dosages and recommended levels. DVT/VTE prophylaxis: You will be given compression stockings from the hospital. Wear these daily for the first two weeks after surgery. You may take them off at night. You may be prescribed a medication to help thin your blood. Take this as directed. If you are not prescribed this medication, early and frequent ambulation has been shown to be the best prophylaxis to deep vein thrombosis and sequelae related to this event. Discharge Disposition: HOME SELF-CARE
[2021-12-21 09:11] LABS: Basophils # (A) 0.01 X 10*3/uL (0.00-0.10); Basophils % (A) 0.1 %; Eosinophils # (A) 0 X 10*3/uL (0.04-0.35); Eosinophils % (A) 0 %; HCT 37.2 % (37.2-46.3); HGB 12.3 g/dL (12.0-15.0); Immature Grans, Automated 0.7 %; Lymphocytes # (A) 1.04 X 10*3/uL (0.90-5.00); Lymphocytes % (A) 9.3 %; MCHC 33.1 g/dL (32.0-37.0); MCV 90.7 fL (80.0-97.0); Mean Platelet Volume 9.8 fL (9.5-12.2); Monocytes # (A) 0.42 X 10*3/uL (0.20-1.00); Monocytes % (A) 3.8 %; NRBC Per 100 WBC 0 /100 WBCS (0.0-0.0); Neutrophils % (A) 86.1 %; Platelet Count 307 X 10*3/uL (140-440); RDW 13.5 % (11.5-14.5); WBC 11.15 X 10*3/uL (4.50-10.00)
[2021-12-21 09:18] LABS: African American GFR (CKD) 92.2 (60.0-200.0); Anion Gap 9.8 mmol/L (10.00-18.00); BUN/Creat Ratio 29.5 Ratio (12.00-20.00); Blood Urea Nitrogen 23.6 mg/dL (9.0-27.0); Carbon Dioxide 26.2 mmol/L (20.0-27.5); Non-African American GFR(CKD) 79.6 (60.0-200.0); Potassium 4.5 mmol/L (3.5-5.5)
--- NOTE | 2021-12-21 21:16 | PN ---
PROGRESS NOTE DATE OF SERVICE: 12/20/2021 SUBJECTIVE: This is a 61-year-old woman who was admitted with cervical radiculopathy and severe pain, was scheduled for surgery. No chest pain. No palpitations. No fever. PHYSICAL EXAMINATION: VITAL SIGNS: Pulse is 73, blood pressure 140/70, respirations 16. HEENT: Conjunctivae normal. NECK: No JVD. CARDIOVASCULAR: S1, S2 muffled. RESPIRATIONS: Breath sounds diminished in the bases. No rhonchi. No crackles. ABDOMEN: Soft. NERVOUS SYSTEM: No focal deficits. LABS: Reviewed. ASSESSMENT: 1. Cervical radiculopathy with severe pain. 2. Increased WBC. 3. Possible mild urinary tract infection. 4. Chronic back pain. RECOMMENDATIONS AND DISCUSSION: Recommend to continue current medications and continue the short course of antibiotics, otherwise closely follow with Orthopedic Surgery. Further recommendations to follow. MMODL / IJN: [id number] /
--- NOTE | 2021-12-23 19:44 | P.DS ---
Providers Date of admission: 12/19/21 09:07 Expected date of discharge: 12/21/21 Attending physician: Jakob Pinedo Consults: 12/17/21 01:15 Consult Physician Routine Consulting Provider: Pankaj Kruger Consult Reason/Comments: Intractable cervical radicular pain Do you want consulting provider notified?: Yes Primary care physician: Stated None Hospital Course: Final Diagnosis Cervical radiculopathy with severe pain INcreased WBC Acute urinary tract infection, present on admission Chronic back pain Post C5-6, C6-7 anterior cervical discectomy and fusion Discharge disposition Patient is being discharged in a stable condition with guarded prognosis to home . Patient will follow-up with Dr. Rod in the outpatient setting upon discharge. Patient is to continue with oral cefdinir and follow up outpatient with Dr. Kruger. Total time taken is greater than 35 minutes. Hospital course This is an 61-year-old female who was recently admitted with neck pain and possible acute UTI. Patient was seen by orthopedics and underwent spinal decompression and will need close outpatient follow up with Dr. Kruger. Patient urine culture showed no growth although urinalysis was slightly dirty. Given a few doses of ceftriaxone. Going home on prophylactic abx per ortho. Currently no reports of chest pain, shortness of breath, or palpitations. Lupe ent is afebrile. No reports of nausea or vomiting and patient is tolerating diet. Patient will be discharged home today. Guarded prognosis. High risk for readmissions. On exam vital signs are stable. Cardio S1, S2 are muffled. Respiratory system shows diminished breath sounds at the bases with no wheezing or rhonchi noted. Abdomen is soft and nontender. Nervous system shows no focal deficits Please refer to medication reconciliation sheet for a list of medications. The impression and plan of care has been dictated by Harriett Cummings, Nurse Practitioner as directed. Dr. Dutch MD I have performed a history and examination and MDM of this patient, discussed the same with the dictator, and agree with the dictator's assessment and plan as written ,documented as a scribe. Based on total visit time, I have performed more than 50% of the visit. Patient Condition at Discharge: Good Plan - Discharge Summary Discharge Rx Participant: Yes New Discharge Prescriptions: New cefaDROXiL [Duricef] 500 mg PO Q12HR 3 Days #6 cap Cyclobenzaprine [Flexeril] 5 mg PO TID #90 tablet Pregabalin [Lyrica] 150 mg PO BID #60 cap HYDROcodone/APAP 5-325MG [[place] 5-325] 1 tab PO Q4HR PRN #56 tab PRN Reason: Pain Continue Albuterol Inhaler [Ventolin Hfa Inhaler] 1 - 2 puff INHALATION RT-Q6H PRN PRN Reason: Shortness Of Breath predniSONE 60 mg PO DAILY #30 tab Acetaminophen [Tylenol] 650 mg PO Q4H PRN PRN Reason: Pain Or Fever > 100.5 Cyclobenzaprine [Flexeril] 5 mg PO TID PRN PRN Reason: Muscle Pain HYDROcodone/APAP 5-325MG [[place] 5-325] 1 tab PO Q4HR PRN 3 Days #18 tab PRN Reason: Pain Rosuvastatin Calcium 5 mg PO HS Ibuprofen [Motrin] 800 mg PO Q8H PRN PRN Reason: Pain Discharge Medication List Albuterol Inhaler [Ventolin Hfa Inhaler] 1 - 2 puff INHALATION RT-Q6H PRN 03/01/16 [History] HYDROcodone/APAP 5-325MG [[place] 5-325] 1 tab PO Q4HR PRN 3 Days #18 tab 12/16/21 [Rx] predniSONE 60 mg PO DAILY #30 tab 12/16/21 [Rx] Acetaminophen [Tylenol] 650 mg PO Q4H PRN 12/17/21 [History] Cyclobenzaprine [Flexeril] 5 mg PO TID PRN 12/17/21 [History] Ibuprofen [Motrin] 800 mg PO Q8H PRN 12/17/21 [History] Rosuvastatin Calcium 5 mg PO HS 12/17/21 [History] Cyclobenzaprine [Flexeril] 5 mg PO TID #90 tablet 12/21/21 [Rx] HYDROcodone/APAP 5-325MG [[place] 5-325] 1 tab PO Q4HR PRN #56 tab 12/21/21 [Rx] Pregabalin [Lyrica] 150 mg PO BID #60 cap 12/21/21 [Rx] cefaDROXiL [Duricef] 500 mg PO Q12HR 3 Days #6 cap 12/21/21 [Rx] Follow up Appointment(s)/Referral(s): Kalia Sanchez MD [REFERRING] - 01/08/22 2:30 pm Pankaj Kruger DO [Doctor of Osteopathic Medicine] - 12/29/21 9:00 am Patient Instructions/Handouts: Cefadroxil (By mouth), Hydrocodone/Acetaminophen (By mouth), Cyclobenzaprine (By mouth), Pregabalin (By mouth), Urinary Tract Infection in Women (DC), Anterior Cervical Discectomy (DC) Activity/Diet/Wound Care/Special Instructions: Spine Discharge and Recovery Instructions Date of Surgery: 12/20/2021 Diagnosis: C5-C6, C6-C7 HNP Procedure: C5-C6, C6-C7 ACDF Medications: See medication list All medication refills should be obtained through your primary care doctor or your clinic spine surgeon. Please discuss prescription refills at your follow up appointment. Do not call the hospital for medication refills. Dressing: Leave your dressing in place for a total of 5 days post operatively. Then you may remove your dressing and leave open to air. Keep the area clean and if not able to keep area clean, then cover with sterile gauze and tape. Showering: You may shower 3 days after your procedure allowing soap and water to run over incision. Do not scrub. Do not soak. Blot dry. Follow up: Please confirm a follow up appointment with your surgeon 3 weeks post operatively. Please make an appointment to follow up with your PCP in 1-2 weeks after surgery for evaluation 3 phase, 3-week plan POST OP WEEKS 1-3 1. Lifting/carrying/pushing/pulling limited to less than 5 pounds. 2. Do not sit for longer than 15 minutes at one time. Get up and walk around. Prolonged sitting is NOT advised. If you lay down, see if you can tolerate laying down on you front (belly side) 3. Walk for periods of 15 minutes = 1 mile but no longer; do it multiple times times each day. 4. Ice your low back after activity. POST OP WEEKS 3-6 1. Lifting limited to less than 20 pounds. 2. Do not sit for longer than 30 minutes at a time. Frequently change positions. Use a sit-to stand workstation or take frequent breaks from sitting if you have returned to work. 3. Walk for 30 minutes each day. If possible, do these three or more times a day POST OP WEEKS 6+ At your 6-week appointment we will give you a physical therapy referral to focus on a core stabilization and strengthening program. You should also work on leg & buttock strengthening, hamstring & quadriceps stretching, and continue a low impact aerobic activity program such as swimming, walking, or riding a stationary bicycle. During the initial 6 weeks after your surgery, you are at the highest risk of re-injuring your spine. You should generally avoid BLTs (bending, lifting and twisting combination motions) and follow the above guidelines to reduce the chance of reinjury. You can anticipate post op appointments in our office at approximately 3 weeks and 6 weeks after your surgery. INCISION CARE: If your incision is not draining you do NOT need to cover it with a dressing. Keep your incision clean, dry and intact. In most cases, we apply skin glue, se or sutures to the incision at the time of surgery. This will be like a crust or have the appearance of a scab and will fall off in time on its own. The stitches or se need to be removed at 3 weeks post op appointment. You may begin to shower 3 days after surgery (this allows the glue to renteria well). However, please avoid scrubbing the incision site or peeling off any of the skin glue. This will ensure optimal healing of your incision. Also, during this time avoid soaking the incision area in water - this includes swimming pools, hot tubs or baths. No ointments, lotions or oils on the incision until your surgeon allows. Leave se, sutures or glue in place. Neurological dysfunction that comes on suddenly can also be a sign of a stroke. Below some common symptoms of a stroke are listed: B - balance difficulty such as sudden onset walking or leaning to one side - NEW E - eye problem such as sudden double vision or trouble seeing on one side - NEW F - Facial weakness or numbness on one side - NEW A - Arm or leg weakness or numbness on one side - NEW S - Slurred speech or difficulty with word finding - NEW T - Time is BRAIN! Call 911 as soon as you recognize these symptoms Diet: Consume a regular diet rich in vegetables and lean protein such as chicken or fish. You should consume in a ratio of approximately 20% fats|40% carbohydrates|40%protein. Vegetables, sweet potatoes, brown rice or quinoa are examples of good carbohydrates. Chips, white bread, cookies and sweets/sugar are examples of bad carbohydrates. Limit your bad carbs, go wild with good carbs. "Life's Simple 7" Guidelines as per [place] [employer] These will help you reclaim your life after surgery and corrugator operator helper in your recovery, keeping in mind your restrictions. (1) Get Active. Physical activity can help people lose weight, control high blood pressure and cholesterol, feel emotionally better, and sleep better. (2) Control Cholesterol. Avoid a diet high in saturated fat, trans fat, & cholesterol. Limit whole milk & cream, ice cream, butter, egg yolks, processed meats (like sausage and hot dogs), and fatty meats. Choose healthy foods that are low in saturated fat, trans fat and cholesterol which include: Fruits and vegetables, fiber rich grain products (like whole grain pasta and brown rice), lean meat such as chicken, fish, nuts, seeds, and legumes. (3) Eat Better. Eat small portions. Shop at the grocery with a list and do not stray from it. Tips for a healthy diet include: Limit sodium intake to less than 1500mg daily, avoid prepackaged, processed, and fast foods, choose a diet rich in fruits, vegetables, and whole grain, high fiber foods, and limit saturated & cholesterol in your diet. (4) Manage Blood Pressure. If you have high blood pressure, you should have a cuff at home so that you can check your blood pressure regularly. Be sure you have a good cuff. An arm one is generally better than a wrist one. Bring the cuff to a doctor's appointment to validate that the measurements that your cuff are taking are accurate. Take your blood pressure twice daily when you are sitting down and relaxing. Record the numbers in a log and bring this log with you to your doctors' appointments. (5) Lose Weight if your BMI is above 25. A healthy BMI is between 19-25. To calculate Your BMI, you may use a Standard BMI Calculator on the NIH BMI website: <www.nhlbi.nih.gov/guidelines/obesity/BMI/bmicalc.htm>. Weigh oneself daily. If you are overweight, set a goal to lose weight. A pound a week loss if needed is a good target. (6) Reduce Blood Sugar. Limit foods and liquids with "added sugars." (Added sugars include sucrose, fructose, glucose, maltose, dextrose, high fructose corn syrup, corn syrup, concentrated fruit juice and honey). (7) Stop Smoking. If you smoke, quitting smoking is one of the best things that you can do for your health. Smoking increases your risk of heart attack, stroke, and peripheral vascular disease, which is a build-up of plaque in your arteries. Please discard all the cigarettes and lighters in your house. Have a plan for what you will do when you have the urge to smoke. Direct and second- hand smoke shortens your life as well as the lives of your family, friends and others around you. For your health and the health of those around you, please consider quitting! Proper Bending Body Mechanics: Maintain a wide stance with one foot slightly in front of the other. Keep your back straight. Bend utilizing the strength in your hips and knees. Do not bend at the waist. Maintain the lifted object at your waist-level close to your body. Avoid lifting weight that causes immediately pain or pain anywhere in the body afterwards. Smoking/Nicotine If there was ever one thing that you could do to increase your overall health, decrease your risk of cardiovascular problems by about 39% the second you make the choice, it is to STOP SMOKING. Your body's most instant gratification is the second you stop smoking. We have all heard the studies, read the articles but it is true, smoking is extremely bad for your overall health, and moreover it is detrimental to your bone health. Nicotine, IN ANY FORM, kills bone cells, prevents your body from healing fractures, and significantly prolongs healing after surgery. In spine surgery specifically, it increases your risk of not healing your bones to create a fusion and increases your risk of having a revision surgery due to this up to 60%. I know it is hard. I know it feels impossible. But there are ways. Take control of your life. We are here to help you through it. And when you are ready, ask us and we can direct you to help if you desire. Use the START Plan to Quit Smoking (please visit the HelpguRollSale.org website listed below for more information): S = Set a quit date. Choose a date within the next 2 weeks, so you have enough time to prepare without losing your motivation to quit. If you mainly smoke at work, quit on the weekend, so you have a few days to adjust to the change. T = Tell family, friends, and co-workers that you plan to quit. Let your friends and family in on your plan to quit smoking and tell them you need their support and encouragement to stop. Look for a quit kelvin who wants to stop smoking as well. You can help each other get through the rough times. A = Anticipate and plan for the challenges you'll face while quitting. Most people who begin smoking again do so within the first 3 months. You can help yourself make it through by preparing ahead for common challenges, such as nicotine withdrawal and cigarette cravings. R = Remove cigarettes and other tobacco products from your home, car, and work. Throw away all your cigarettes (no emergency pack!), lighters, ashtrays, and matches. Wash your clothes and freshen up anything that smells like smoke. Shampoo your car, clean your drapes and carpet, and steam your furniture. T = Talk to your doctor about getting help to quit. Your doctor can prescribe medication to help with withdrawal and suggest other alternatives. If you can't see a doctor, you can get many products over the counter at your local pharmacy or grocery store, including the nicotine patch, nicotine lozenges, and nicotine gum. Resources for Quitting Smoking: <https://www.[place].gov/documents/[facility]/Quit_Tobacco_Resources_for_patients_313 480_7.pdf> Supplementation: Take recommended dosages of Vitamin D and Calcium to help fortify your bones and help them to heal. See your health maintenance packet for dosages and recommended levels. DVT/VTE prophylaxis: You will be given compression stockings from the hospital. Wear these daily for the first two weeks after surgery. You may take them off at night. You may be prescribed a medication to help thin your blood. Take this as directed. If you are not prescribed this medication, early and frequent ambulation has been shown to be the best prophylaxis to deep vein thrombosis and sequelae related to this event. Discharge Disposition: HOME SELF-CARE
--- NOTE | 2021-12-26 06:31 | P.OP ---
Date of Procedure: 12/20/21 Preoperative Diagnosis: 1. 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 UE weakness 3. UE radiculopathy 4. Neck pain Postoperative Diagnosis: 1. 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 UE weakness 3. UE radiculopathy 4. Neck pain Procedure(s) Performed: 1. C5-6 and C6-7 anterior cervical discectomy and fusion (64629, 21858) 2. Insertion of biomechanical device x2 ([id number]) 3. Placement of non integrated anterior plate x2 ([id number]) 4. Use of intraoperative microscope 5. Use of intraoperative neuromonitoring Implants: -Jazlyn cascadia 12 deg lordotic 9 and 10 mm cage -Boomerag plate x2 13 and 14 mm -boomerang screws Anesthesia: FLAKO Surgeon: Pankaj Kruger Swahili Teacher #1: Sabine Ribeiro (Was present and assisted in all aspects of the case, positioniing, dissection, decompression, hardware, fusion, closure, dressing) Estimated Blood Loss (ml): 50 IV fluids (ml): 1,200 Urine output (ml): 250 Pathology: none sent Condition: stable Disposition: PACU Indications for Procedure: 61-year-old female who presented with acute exacerbation of her left upper extremity weakness pain and radicular symptoms. She is also having increasing neck pain. Patient has been worked up in the past for her neck issues however conservative measures have failed to provide her with any relief. She has tried medications as well as therapy injections home therapy and none of them seemed to work. She days of severe radicular pain in her left upper extremity. This was so bad that a prior to the emergency department and she was admitted for pain control as well as for workup. She received MRI here which showed severe stenosis due to large disc herniation at C6-C7 as well as C5-C6. Was eccentric on the left-hand side matching her symptoms. This severe stenosis along with her symptoms of increasing weakness or left upper extremity were discussed of her options for treatment including operative and nonoperative treatment. At this time the patients try nonoperative treatment and has not functioned for her and she is continuing to worsen and so we discussed surgical treatment for ACDF and she agreed. She would like to pursue operative treatment at this time. We discussed risks and benefits as outlined in the risk review. She was comfortable with this and willing to proceed. Description of Procedure: The patient was seen and examined in the preoperative area. All preoperative protocols were followed. Informed consent was obtained risks and benefits of the procedure were discussed at length. Risks including bleeding infection damage to the surrounding tissue and risk of reoperation were discussed with the patient. Risk of anesthesia up to and including was a discussed with the patient. These are outlined in the risk review. They were willing to accept these risks and all of the risks of surgery. The patient was given a weight- based dose of antibiotics in the form of 2 g Ancef. The patient was seen and evaluated by the anesthesia team who deemed them fit for surgery. The site was marked, the patient was willing to proceed with the procedure. The patient was transferred to the operative suite by the Department of anesthesia. They were then drifted off to sleep by the department anesthesia and GETA was performed. The patient tolerated this well. [Blackmon catheter was placed by nursing staff, atraumatically]. Once confirmation of lines and ventilation the patient was transferred to a supine flattop Navi table very carefully. All bony prominences including wrists, elbows, axilla, chest, hips, and thighs, and feet were padded very well. Special attention was paid to the genitalia and these were padded accordingly. SCDs were placed on bilateral lower extremities and were connected. Arms were well padded and placed at her side thumbs up. A shoulder roll was placed. Her shoulders were gently taped down to the table.. Once in position, again we confirmed good ventilation capabilities and that lines were running appropriately. The patient's anterior cervical spine was then exposed. 1010s were placed outlining the incision site. Standard alcohol was used to clean the incision site and allowed to dry. C-arm was used to biomark the patient and confirm level for incision which was marked with a skin marker. Operative briefing was performed with all teams and everyone in agreement to proceed. The patient was then prepped and draped in a normal sterile fashion. Timeout was then performed and all parties were in agreement with the procedure to be performed. Transverse skin incision was made over the previously biomarked area about 3 cm. Standart Reyes-Gutierres approach to the anterior cervical spine was taken. Platysma was split longitudinally with its fibers. Blunt dissection taken down to anterior C spine and blunt probe with lateral xray confirmed levels for operation. Retractor was placed after careful elevation of longissimus muscles. [place] pins were placed into C5 and C6 and gentle distraction taken out under lateral xray. Complete discectomy was performed. Anterior and posterior osteophytes burred off of C5 revealing PLL. PLL was then resected carefully and b/l foraminotomies performed with kerrison rongure. Once endplates were devoid of cartilage, disc was resected and good decompression completed. Trials were inserted under lateral to size the space. Once space was sized final implant was selected. Motors were run and were stable. Implant impacted into position under lateral image and was in good position. Motors run after were stable. Meticulous hemostasis was performed. Wound was irrigated. [place] pin was removed from C5 and bone wax placed in its void. Retractors were repositionined over C6-7. [place] pin placed in C7 and careful distraction taken out across C6- 7. Complete discectomy then performed at this level. [place]wood used to removed osteophytes from anterior and posterior of C6 and C7. PLL identified and resected with kerrisons. B/L foraminotomies performed with kerrision. Meticulous hemostasis performed. Endplates were devoid of cartilage and disc and trials were inserted to size the space. Once sized, final implant was placed under lateral imaging and in good position. Motors before and after were stable. The space was then irrigated. [place] pins removed and bone wax placed in their void. Two plates were selected and placed at each level using lateral image guidance. Once in place and screws tightened, screws had good purchase, the locking mechanism was set and the plates were stable. Final AP and Lat images confirmed good placment of hardware, good alignment and decompression. Wound was then irrigated with NSS. Surgicel was placed deep. Yesenia drain placed and secured with a stitch. Would was then closed in layers. Platysma closed with 3-0 vicryl. Subq closed with 3-0 vicryl and subcuticular layer with 4-0 stratafix. Wound was cleaned and dried and glue applied to skin. This was allowed to dry then was dressed with opifoam dressing drain sponge and tegaderm. The patient was transferred back to their hospital bed atraumatically. [Drain continued to hold suction and were in good position]. Patient was then awakened and extubated by the department of anesthesia having tolerated the procedure very well with no complications. They were transferred to the postoperative care unit in stable condition.
== END 2021-12-21 12:26 | disposition home or self-care (01) | DRG 471 ==
LOC: EC 18:59 → 6NMEDSUR 12-17 01:15 → 5NMEDONC 12-17 01:54 → OBSVTOIN 12-19 09:07
PROVIDERS: ADMIT Internal Medicine; ATTEND Internal Medicine
PROC: 0RT30ZZ Resection of Cervical Vertebral Disc, Open Approach (ICD-10-PCS; 2021-12-20)
PROC: 4A11X4G Monitoring of Peripheral Nervous Electrical Activity, Intraoperative, External Approach (ICD-10-PCS; 2021-12-20)
PROC: 0RG20A0 Fusion of 2 or more Cervical Vertebral Joints with Interbody Fusion Device, Anterior Approach, Anterior Column, Open Approach (ICD-10-PCS; principal; 2021-12-20 13:00)
DX: M47.22 Other spondylosis with radiculopathy, cervical region (principal); M31.19 Other thrombotic microangiopathy; G95.89 Other specified diseases of spinal cord; M50.023 Cervical disc disorder at C6-C7 level with myelopathy; N39.0 Urinary tract infection, site not specified; J45.20 Mild intermittent asthma, uncomplicated; F32.A Depression, unspecified; E78.5 Hyperlipidemia, unspecified; M48.02 Spinal stenosis, cervical region; M40.50 Lordosis, unspecified, site unspecified; G89.29 Other chronic pain; F41.9 Anxiety disorder, unspecified; M50.123 Cervical disc disorder at C6-C7 level with radiculopathy; Z88.1 Allergy status to other antibiotic agents; Z28.310 Unvaccinated for COVID-19
CPT/HCPCS: 36415; 71045; 72040; 72125; 80048; 81001; 84443; 85025; 86140; 87086; 96374; 96375; 99284

== ENCOUNTER → 2022-05-29 | Outpatient (CLI) | payer MEDICAID ==
[2022-05-29 14:30] LABS: Basophils # (A) 0.06 X 10*3/uL (0.00-0.10); Eosinophils # (A) 0.12 X 10*3/uL (0.04-0.35); HCT 43.5 % (37.2-46.3); HGB 13.8 g/dL (12.0-15.0); Immature Grans, Automated 0.3 %; Lymphocytes # (A) 2.22 X 10*3/uL (0.90-5.00); Lymphocytes % (A) 36.5 %; MCHC 31.7 g/dL (32.0-37.0); MCV 88.4 fL (80.0-97.0); Mean Platelet Volume 9.4 fL (9.5-12.2); Monocytes # (A) 0.51 X 10*3/uL (0.20-1.00); Monocytes % (A) 8.4 %; NRBC Per 100 WBC 0 /100 WBCS (0.0-0.0); Neutrophils # (A) 3.16 X 10*3/uL (1.80-7.70); Neutrophils % (A) 51.8 %; Platelet Count 331 X 10*3/uL (140-440); RBC 4.92 X 10*6/uL (4.10-5.20); RDW 13.2 % (11.5-14.5); WBC 6.09 X 10*3/uL (4.50-10.00)
[2022-05-29 15:20] LABS: ALT 21 U/L (8-44); AST 19 U/L (13-35); African American GFR (CKD) 69.9 (60.0-200.0); Albumin 4.5 g/dL (3.8-4.9); Albumin/Globulin Ratio 1.55 (1.60-3.17); Alkaline Phosphatase 78 U/L (41-126); Calcium 9.9 mg/dL (8.7-10.3); Carbon Dioxide 22.6 mmol/L (20.0-27.5); Chloride 105 mmol/L (96-109); Globulin 2.9 g/dL (1.6-3.3); Glucose 97 mg/dL (70-110); LDL Cholesterol,Calculated 166.5 mg/dL (0.0-131.0); Non-African American GFR(CKD) 60.3 (60.0-200.0); Potassium 4.5 mmol/L (3.5-5.5); Sodium 139 mmol/L (135-145); Total Protein 7.4 g/dL (6.2-8.2)
== END | disposition home or self-care (01) ==
LOC: LABWHC1 07:42
PROVIDERS: ATTEND Internal Medicine
DX: E78.5 Hyperlipidemia, unspecified (principal); E55.9 Vitamin D deficiency, unspecified
CPT/HCPCS: 36415; 80053; 80061; 82306; 84443; 85025

== ENCOUNTER → 2023-03-19 | Outpatient (CLI) | payer MEDICAID ==
--- NOTE | 2023-03-19 09:18 | XR ---
EXAMINATION TYPE: XR shoulder complete LT DATE OF EXAM: 03/19/2023 8:12 AM CLINICAL INDICATION:Female, 62 years old with history of M25.512 Shoulder pain left; COMPARISON: 05/08/2018 TECHNIQUE: XR shoulder complete LT; examined in AP, internally rotated and scapular Y projections. FINDINGS: No evidence of acute osseous pathology, joint dislocation, or soft tissue swelling. The remaining po rtions of the visualized chest are unremarkable. Mild degeneration changes of the left acromion, dis tam clavicle with osteophyte formation. There is osteophyte formation of the glenoid and humeral head . There is joint space narrowing of glenohumeral joint IMPRESSION: 1. No acute osseous pathology. 2. Mild shoulder osteoarthrosis.
[2023-03-19 10:48] LABS: Basophils # (A) 0.06 X 10*3/uL (0.00-0.10); Eosinophils # (A) 0.09 X 10*3/uL (0.04-0.35); Eosinophils % (A) 1.5 %; HCT 42.1 % (37.2-46.3); HGB 13.8 g/dL (12.0-15.0); Lymphocytes # (A) 1.87 X 10*3/uL (0.90-5.00); Lymphocytes % (A) 30.2 %; MCH 29.1 pg (27.0-32.0); MCHC 32.8 g/dL (32.0-37.0); MCV 88.8 FL (80.0-97.0); Mean Platelet Volume 9.5 FL (9.5-12.2); Monocytes # (A) 0.51 X 10*3/uL (0.20-1.00); Monocytes % (A) 8.2 %; NRBC Per 100 WBC 0 X 10*3/uL (0.00-0.01); Neutrophils # (A) 3.64 X 10*3/uL (1.80-7.70); Neutrophils % (A) 58.6 %; Platelet Count 331 X 10*3/uL (140-440); RBC 4.74 X 10*6/uL (4.10-5.20); RDW 13.1 % (11.5-14.5)
[2023-03-19 11:35] LABS: ALT 21 U/L (8-44); AST 18 U/L (13-35); Albumin 4.5 g/dL (3.8-4.9); Albumin/Globulin Ratio 1.67 Ratio (1.60-3.17); Alkaline Phosphatase 77 U/L (41-126); BUN/Creat Ratio 18.44 Ratio (12.00-20.00); Blood Urea Nitrogen 16.6 mg/dL (9.0-27.0); Calcium 9.9 mg/dL (8.7-10.3); Carbon Dioxide 22.7 mmol/L (21.6-31.8); Chloride 104 mmol/L (96-109); Chol/HDL Ratio 4.44 Ratio; Globulin 2.7 g/dL (1.6-3.3); Glucose 99 mg/dL (70-110); LDL Cholesterol,Calculated 139.1 mg/dL (0.0-131.0); Potassium 4.4 mmol/L (3.5-5.5); Sodium 138 mmol/L (135-145); Total Bilirubin 0.3 mg/dL (0.3-1.2); Total Protein 7.2 g/dL (6.2-8.2)
--- NOTE | 2023-03-19 16:10 | MM ---
Reason for Exam: Screening (asymptomatic). Last mammogram was performed 3 year(s) and 6 month(s) ago. Patient History: Menarche at age 11. First Full-Term at age 19. Postmenopausal. Patient has history of breast feeding. Paternal aunt had breast cancer. Risk Values: Mya 5 year model risk: 1.2%. NCI Lifetime model risk: 5.5%. Prior Study Comparison: 03/06/2012 Bilateral Screening Mammogram, [facility]. 03/11/2012 Left Diagnostic Mammogram, [facility]. 11/19/2012 Left Diagnostic Mammogram, [facility]. 09/04/2019 Bilateral Screening Mammogram, [facility]. Tissue Density: There are scattered fibroglandular densities. Findings: Analyzed By CAD. There is no suspicious group of microcalcifications or new suspicious mass. Overall Assessment: Negative, BI-RAD 1 Management: Screening Mammogram of both breasts in [address] [facility] will attempt to contact patient to return for supplemental views and ultrasound if indicated. Patient should continue monthly self-breast exams. A clinical breast exam by your physician is recommended on an annual basis. This exam should not preclude additional follow-up of suspicious palpable abnormalities. Note on Mya scores and lifetime risk: 1. A Mya score greater than 3% is considered moderate risk. If this is the case, consider specialist referral to assess eligibility for a risk reducing agent. 2. If overall lifetime risk for the development of breast cancer is 20% or higher, the patient may qualify for future screening with alternating mammogram and breast MRI. Electronically signed and approved by: Tim Bower DO
--- NOTE | 2023-03-20 18:24 | BD ---
EXAMINATION TYPE: Axial Bone Density DATE OF EXAM: 03/19/2023 CLINICAL HISTORY: 62 years old Female. ICD-10 CODE: Z78.0 ASYMPTOMATIC MENOPAUSAL STA Height: 62 Weight: 198.4 FRAX RISK QUESTIONS: Alcohol (3 or more units per day): no Family History (Parent hip fracture): no Glucocorticoids (More than 3mos): no History of Fracture in Adulthood: no Secondary Osteoporosis: 1. Type 1 Diabetes: no 2. Hyperthyroidism: no 3. Menopause before 45: yes 4. Malnutrition: no 5. Chronic liver disease: no Rheumatoid Arthritis: no Current Tobacco Use: no RISK FACTORS HISTORY OF: Hip Fracture (Right/Left): no Spine Fracture: no History of Wrist Fracture: no Surgery to Spine/Hip(right/left)/Wrist (right/left): no Family History of Osteoporosis: no Active: fairly Diet low in dairy products/other sources of calcium: yes Postmenopausal woman: yes Take estrogen and/or progesterone medications: no Lost more than 2 inches in height since high school: no Frequent falls: no Poor Health: no Hyperparathyroidism: no Adrenal Insufficiency: no MEDICATIONS: Prednisone or other steroids: no Thyroid Medications: no Osteoporosis Medications: no Additional Medications: Cholesterol Meds, Vit D, Additional History: EXAM MEASUREMENTS: Bone mineral densitometry was performed using the [employer] System. Bone mineral density as measured about the Lumbar spine is: ----- L1-L4(G/cm2): 1.282 T Score Values are as follows: ----- L1: -0.8 ----- L2: 0.5 ----- L3: 1.5 ----- L4: 1.7 ----- L1-L4: 0.9 Z Score Values are as follows: ----- L1: -0.2 ----- L2: 1.1 ----- L3: 2.1 ----- L4: 2.3 ----- L1-L4: 1.4 Baseline Study Bone mineral density about the R hip (g/cm2): 1.122 Bone mineral density about the L hip (g/cm2): 1.246 T Score values are as follows: -----R Neck: -0.1 -----L Neck: 0.7 -----R Total: 0.9 -----L Total: 1.9 Z Score values are as follows: -----R Neck: 0.7 -----L Neck: 1.5 -----R Total: 1.4 -----L Total: 2.4 Baseline Study FRAX%s: The graph provided illustrates a 6.1% chance for a major osteoporotic fx and a 0.2% chance fo r the hips probability for fx in 10 years time. IMPRESSION: Normal (Values between +1 and -1 indicate normal bone mass). Consider repeating this study in 5 year s or sooner if there is some new clinical indication. NOTE: T-SCORE=SD OF THE YOUNG ADULT MEAN.
== END | disposition home or self-care (01) ==
LOC: RADMAMWWP 06:58
PROVIDERS: ATTEND Internal Medicine
DX: Z00.00 Encounter for general adult medical examination without abnormal findings (principal); Z12.31 Encounter for screening mammogram for malignant neoplasm of breast; Z13.820 Encounter for screening for osteoporosis; Z11.59 Encounter for screening for other viral diseases; M19.012 Primary osteoarthritis, left shoulder; E55.9 Vitamin D deficiency, unspecified; Z78.0 Asymptomatic menopausal state; Z80.3 Family history of malignant neoplasm of breast
CPT/HCPCS: 77063; 77067; 77080; 80053; 80061; 82306; 84443; 85025; 86803

== ENCOUNTER → 2023-03-29 | Outpatient (CLI) | payer MEDICAID ==
--- NOTE | 2023-04-13 18:18 | MR ---
EXAMINATION TYPE: MR shoulder LT wo con DATE OF EXAM: 03/29/2023 COMPARISON: Outside radiograph 03/29/2023 HISTORY: 62-year-old female M2 5.512, Lt shoulder pain TECHNIQUE: Multiplanar, multisequence imaging of the left shoulder is performed without contrast. FINDINGS: Unable to adequately visualize the intracapsular portion of the long head biceps tendon. Th e extracapsular portion appears appropriately situated along the bicipital groove. The subscapularis tendon is intact. The supraspinatus and infraspinatus tendons are thin. In addition, prominent intrasubstance changes p resent throughout their footprint. There is also further thinning measuring 1 cm long and 8 mm wide a t the junction of the supraspinatus and infraspinatus tendons, coronal image 15 and sagittal image 14 suggesting a small partial thickness tear. No full-thickness tear is seen. No atrophy of the rotator cuff musculature. There is mild to moderate degenerative change at the acromioclavicular joint with capsular hypertroph y and irregularity of the subchondral bone and small cystic change. Mild effusion within the subacromial bursa. The glenohumeral joint is intact with physiologic joint fluid. There is irregularity of the glenoid labrum along the posterior superior corner with suspected tiny 5 x 4 mm paralabral cyst, coronal image 13 and axial image 19. No Hill-Sachs deformity or os acromiale. Mild patchy red marrow hyperplasia which can be seen in the setting of anemia, obesity, smoking, waxer floor renard disease. IMPRESSION: 1. Unable to adequately visualize the intracapsular portion of the long biceps tendon. Query any hist ory of previous surgery or tear. The tendon may be scarred down in the bicipital groove. 2. Tear along the posterior superior corner of the glenoid labrum with a small 5 mm paralabral cyst. 3. Diffusely thin and tendinotic supraspinatus and infraspinatus tendons. Areas of intrasubstance paula nge are present along the insertions. There is also a 10 x 8 mm area of partial thickness tear at the junction of the supraspinatus and infraspinatus tendons located below the acromion. No full-thicknes s tear is seen. 4. Mild subacromial bursitis.
== END | disposition home or self-care (01) ==
LOC: RADMRIMAIN 12:42
PROVIDERS: ATTEND Orthopaedic Surgery
DX: M67.814 Other specified disorders of tendon, left shoulder (principal); M75.102 Unspecified rotator cuff tear or rupture of left shoulder, not specified as traumatic; M71.312 Other bursal cyst, left shoulder; M75.52 Bursitis of left shoulder

== ENCOUNTER → 2023-06-26 | Outpatient (CLI) | payer MEDICAID ==
[2023-06-26 14:42] LABS: Basophils # (A) 0.05 X 10*3/uL (0.00-0.10); Basophils % (A) 0.7 %; Eosinophils % (A) 1.3 %; HCT 45.2 % (37.2-46.3); HGB 14.6 g/dL (12.0-15.0); Lymphocytes # (A) 2.42 X 10*3/uL (0.90-5.00); Lymphocytes % (A) 32.1 %; MCH 29.9 pg (27.0-32.0); MCHC 32.3 g/dL (32.0-37.0); MCV 92.6 FL (80.0-97.0); Mean Platelet Volume 9.4 FL (9.5-12.2); Monocytes # (A) 0.58 X 10*3/uL (0.20-1.00); Monocytes % (A) 7.7 %; NRBC Per 100 WBC 0 X 10*3/uL (0.00-0.01); Neutrophils # (A) 4.38 X 10*3/uL (1.80-7.70); Neutrophils % (A) 57.9 %; Platelet Count 326 X 10*3/uL (140-440); RBC 4.88 X 10*6/uL (4.10-5.20); RDW 13.2 % (11.5-14.5); WBC 7.55 X 10*3/uL (4.50-10.00)
[2023-06-26 15:52] LABS: Anion Gap 13.1 mmol/L (4.00-12.00); Carbon Dioxide 20.9 mmol/L (21.6-31.8); Potassium 4.9 mmol/L (3.5-5.5)
== END | disposition home or self-care (01) ==
LOC: LABPAT 09:09
PROVIDERS: ATTEND Orthopaedic Surgery
DX: Z01.818 Encounter for other preprocedural examination (principal); M75.42 Impingement syndrome of left shoulder; I45.10 Unspecified right bundle-branch block; R94.31 Abnormal electrocardiogram [ECG] [EKG]
CPT/HCPCS: 80051; 85025; 93005

== ENCOUNTER 2023-07-18 05:52 | Day surgery (SDC) | payer MEDICAID ==
[2023-07-16 09:13] VITALS: BMI 34.4
--- NOTE | 2023-07-17 13:29 | HP ---
HISTORY AND PHYSICAL DATE OF SCHEDULED SURGERY: 07/18/2023. HISTORY OF PRESENT ILLNESS: Winnie Feldman is a 63-year-old patient, seen with progressive left shoulder pain after having treatment options discussed. She elected to proceed with left shoulder arthroscopy. Consent was obtained. PAST MEDICAL HISTORY: Hyperlipidemia. PAST SURGICAL HISTORY: Hysterectomy, cholecystectomy, left shoulder arthroscopy. MEDICATIONS: Aspirin, rosuvastatin. ALLERGIES: Cipro. SOCIAL HISTORY: She denies tobacco use. PHYSICAL EVALUATION OF THE LEFT SHOULDER: Flexion is 150 degrees, abduction is 130 degrees. External rotation is 30 degrees with weakness. She is tender along the anterolateral acromion rotator cuff insertion. Impingement is positive at 100 degrees. Drop-arm sign is positive. Distal neurovascular exam is intact. IMAGING STUDIES: Radiographs of the left shoulder revealed cystic changes of the greater tuberosity. MRI left shoulder revealed a rotator cuff tear, labral tear, and paralabral cyst along with biceps tendon tear. IMPRESSION: 1. Left shoulder impingement with rotator cuff tear. 2. Left shoulder labral tear with paralabral cyst. 3. Left shoulder biceps tear. 4. Hyperlipidemia. PLAN: Left shoulder arthroscopy with subacromial decompression, arthroscopic rotator cuff repair, Dragan procedure and debridement of labral tear/cyst. MMODL / IJN: [id number] /
[2023-07-18] MEDS ORDERED: ONDANSETRON 4 MG/2 ML VIAL ONE (06:18)
[2023-07-18] MEDS: LACTATED RINGERS 1,000 ML IV ONE (06:25)
[2023-07-18] MEDS ORDERED: LACTATED RINGERS 1,000 ML IV SCH (06:25)
[2023-07-18] MEDS ORDERED: LIDOCAINE 1% (10MG/ML) FOR IV START INTRADERMA PRN (06:25)
[2023-07-18] MEDS: MIDAZOLAM 2 MG/2 ML VIAL IV PRN (06:48)
[2023-07-18] MEDS ORDERED: HYDROmorphone 0.5 MG/0.5 ML SYRINGE IVP PRN (07:00)
[2023-07-18] MEDS: ONDANSETRON 4 MG/2 ML VIAL IVP ONE (07:14)
[2023-07-18] MEDS: DEXAMETHASONE SOD PHOSPHATE 4 MG/ML 1 ML VIAL IV ONE (07:14)
--- NOTE | 2023-07-18 07:21 | P.ANPRN ---
Procedure Note - Anesthesia - Nerve Block Performed Left Interscalene Single Time Out Performed: Yes Date of Procedure: 07/18/23 Procedure Start Time: 06:45 Procedure Stop Time: 06:50 Location of Patient: PreOp Indication: Acute Post-Operative Pain, Analgesia, Requested by Surgeon Sedation Type: Sedate with meaningful contact maintained Preparation: Sterile Prep Position: Sitting Catheter: None Needle Types: Pajunk Needle Gauge: 21 Ultrasound used to visualize needle placement: Yes Ultrasound used to observe medication spread: Yes Injectate: 0.5% Ropivacaine (see comment for volume) (Ropiv 20ml +decadron 4mg . No nerve stimulation @0.5ma.) Blood Aspirated: No Pain Paresthesia on Injection Noted: No Resistance on Injection: Normal Image Stored and Saved: Yes Events: Uneventful and Well Tolerated
[2023-07-18] MEDS ORDERED: ePHEDrine 50 MG/ML 1 ML VIAL ONE (07:27)
[2023-07-18] MEDS ORDERED: PHENYLEPHRINE 10 MG/ML VIAL ONE (07:27)
[2023-07-18] MEDS ORDERED: ROPIVACAINE 5 MG/ML 30 ML VIAL ONE (07:27)
[2023-07-18] MEDS ORDERED: fentaNYL (PF) 50 MCG/ML 2 ML AMP ONE (07:27)
[2023-07-18] MEDS ORDERED: GLYCOPYRROLATE 0.2 MG/ML 2 ML VIAL ONE (07:27)
[2023-07-18] MEDS ORDERED: DEXAMETHASONE SOD PHOSPHATE 4 MG/ML 1 ML VIAL ONE (07:27)
[2023-07-18] MEDS ORDERED: NEOSTIGMINE 1 MG/ML 10 ML VIAL ONE (07:27)
[2023-07-18] MEDS ORDERED: PROPOFOL 10 MG/ML 20 ML VIAL IV ONE (07:27)
[2023-07-18] MEDS ORDERED: ROCURONIUM 10 MG/ML (5 ML VIAL) IV ONE (07:27)
[2023-07-18] MEDS ORDERED: SUCCINYLCHOLINE CHLORIDE 200 MG/10 ML VIAL IV ONE (07:27)
[2023-07-18] MEDS ORDERED: MIDAZOLAM 2 MG/2 ML VIAL ONE (07:27)
[2023-07-18] MEDS ORDERED: LIDOCAINE 1% INJ 10MG/ML (20 ML MDV) ONE (07:27)
--- NOTE | 2023-07-18 08:55 | P.OP ---
Date of Procedure: 07/18/23 Preoperative Diagnosis: Left shoulder impingement Postoperative Diagnosis: 1. Left shoulder rotator cuff tear 2. Left shoulder impingement 3. Left shoulder acromioclavicular joint osteoarthritis 4. Left shoulder labral tear Procedure(s) Performed: 1. Left shoulder arthroscopic rotator cuff repair 2. Left shoulder arthroscopic subacromial decompression 3. Left shoulder arthroscopic Dragan procedure 4. Left shoulder arthroscopic debridement labral tear Implants: 1Arthrex 4.75 swivel lock anchor Anesthesia: GETA, regional (Interscalene block) Surgeon: Benito Mcconnell Glue Mounter Operator #1: Tano Perez Estimated Blood Loss (ml): 10 Pathology: none sent Condition: stable Disposition: PACU Indications for Procedure: 63-year-old patient seen with progressive left shoulder pain. After having treatment options discussed, she elected to proceed with arthroscopy. Operative Findings: See description of procedure Description of Procedure: Patient underwent an interscalene block by department of anesthesia. The patient was then taken to the operative suite. The patient underwent a general anesthetic by the department of anesthesia. The patient was placed into a lateral position and secured. There was appropriate padding of the bony prominence. Left shoulder was then prepped and draped in normal sterile orthopedic fashion. We placed the extremity in 10 pounds of longitudinal traction. A posterior incision was now made for a posterior working portal site. The trocar and cannula were inserted into the glenohumeral joint. Arthroscopy was initiated. Spinal needle was now inserted anteriorly, to ascertain the anterior working portal site. An incision was now made in that area, a trocar was inserted followed by a probe. There was grade I/II chondromalacia of the humeral head without significant tears. There were grade I/II chondromalacia changes of the glenoid fossa without tears. The biceps tendon was absent. There was some superficial tearing of the superior/posterior labral tissue. I used a motorized shaver and debrided that out. The residual labrum was stable. At this point instruments removed from glenohumeral joint. Utilizing the posterior working portal site, the trocar and cannula were inserted into the subacromial space. Arthroscopy initiated. I made an incision 2 fingerbreadths lateral to the acromion. I introduced my trocar followed by my ArthroCare ablator. I now began ablating thick subacromial bursal tissue, which exposed the undersurface of the anterior acromion. There was diminished subacromial space. A motorized bur was introduced and a subacromial decompression was performed. I also excised some osteophytes off the inferior aspect of the distal clavicle. The AC joint was visualized and noted to be fairly arthritic. The motorized bur was introduced in the anterior portal site and a Dragan procedure was performed without difficulty removing 8 mm of bone off the distal clavicle, decompressing the AC joint nicely. I turned my attention to the rotator cuff. There was a 1 cm rotator cuff tear. I debrided the margins getting down to stable tendon tissue. The tear/defect measured approximately 1.5 cm and was freely mobile over the footprint I introduced my motorized bur and abraded the footprint area, getting some petechial bleeding. I passed 3 inverted mattress sutures through good bites of rotator cuff tendon. I punched a hole in the footprint area for insertion of an anchor. All 6 limbs of suture were passed through the eyelet of an Arthrex 4.75 swivel lock anchor. I placed the eyelet into the preplanned hole. I held in position while Jorgito GERARDO tensioned all 6 limbs of suture and deployed the anchor with good fixation noted. All residual suture limbs were now clipped. We had good compression of the tendon along the entire footprint. Instruments now removed from the portal sites. All portal sites were approximated with nylon suture. Sterile dressings were applied followed by a shoulder sling. Tano GERARDO assisted in this complex case. The patient was awakened, transferred to a bed, and taken to recovery in stable condition.
[2023-07-18 09:19] VITALS: TEMP 97
[2023-07-18 11:10] VITALS: BP 105/70; PULSE 72; RESP 17
== END 2023-07-18 10:45 | disposition home or self-care (01) ==
LOC: OR 05:52
PROVIDERS: ATTEND Orthopaedic Surgery
DX: S46.012A Strain of muscle(s) and tendon(s) of the rotator cuff of left shoulder, initial encounter (principal); S43.492A Other sprain of left shoulder joint, initial encounter; M75.42 Impingement syndrome of left shoulder; M19.012 Primary osteoarthritis, left shoulder; G89.18 Other acute postprocedural pain; E78.5 Hyperlipidemia, unspecified; Z88.1 Allergy status to other antibiotic agents; Z79.82 Long term (current) use of aspirin; Z79.899 Other long term (current) drug therapy; Z90.710 Acquired absence of both cervix and uterus; Z90.49 Acquired absence of other specified parts of digestive tract; X58.XXXA Exposure to other specified factors, initial encounter
CPT/HCPCS: 64415; 29824; 29826; 29827; C1713 ×2; J2250; J0330; J1100; J2710; J0690; J2405; J2001; J3010; J2795; J2704; J2371

== ENCOUNTER 2023-07-24 09:44 | Emergency (ER) | payer MEDICAID ==
--- NOTE | 2023-07-24 10:34 | ED ---
Abdominal Pain HPI - General Chief Complaint: Abdominal Pain Stated Complaint: Abd Pain Time Seen by Provider: 07/24/23 10:08 Source: patient, RN notes reviewed Mode of arrival: ambulatory Limitations: no limitations - History of Present Illness Initial Comments: This is a 63-year-old female with medical history of hyperlipidemia presents emergency department chief complaint of left lower quadrant abdominal pain over the past 3 days. Patient states that she began having abdominal pain on Saturday and yesterday she experienced loose mucousy stools tinged with blood. Enodrses feelings of nausea with no vomiting. Denies fevers, chest pain or pressure, dizziness, lightheadedness. denies previous history of upper or lower GI bleeds. States that she had a colonoscopy completed roughly 2 years ago with findings of mild diverticulosis and repeat recommended in 5 to 10 years. Denies history of diverticulitis. Previous abdominal surgeries including cholecystectomy and . - Related Data Home Medications Medication Instructions Recorded Confirmed Aspirin 81 mg PO DAILY 03/29/22 07/24/23 Ezetimibe [Zetia] 10 mg PO HS 07/16/23 07/24/23 HYDROcodone/APAP 7.5-325MG [[place] 1 tab PO Q6HR PRN 07/24/23 07/24/23 7.5] Rosuvastatin Calcium [Crestor] 40 mg PO HS 07/24/23 07/24/23 Previous Rx's Medication Instructions Recorded metroNIDAZOLE [Flagyl] 500 mg PO TID #30 tab 07/24/23 Allergies Allergy/AdvReac Type Severity Reaction Status Date / Time ciprofloxacin [From Cipro] Allergy Severe Anaphylaxis Verified 07/24/23 11:27 ciprofloxacin HCl Allergy Severe Anaphylaxis Verified 07/24/23 11:27 [From Cipro] Review of Systems ROS Statement: Those systems with pertinent positive or pertinent negative responses have been documented in the HPI. ROS Other: All systems not noted in ROS Statement are negative. 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 C/O ABD PAIN AFTER BM, frequent stools and cramping in the a.m. sometimes MUCOUS IN STOOL. diverticulosis. HX Migraines. Actinic karatosis to scalp. Silent CT 2000, RBB. Last Myocardial Infarction Date:: 2000 History of Any Multi-Drug Resistant Organisms: None Reported Past Surgical History: Section, Cholecystectomy, Orthopedic Surgery Additional Past Surgical History / Comment(s): C-Sections x 2, d and c, L shoulder arthroscopy x2, colonoscopy,polyps and diverticulosis. cervical disc fusion 12/23 Past Anesthesia/Blood Transfusion Reactions: No Reported Reaction Additional Past Anesthesia/Blood Transfusion Reaction / Comment(s): no Blood transfusions Past Psychological History: Anxiety, Depression Smoking Status: Never smoker - Past Family History Daughter(s) Family Medical History: Cancer Additional Family Medical History / Comment(s): Kidney Father Family Medical History: Coronary Artery Disease (CAD), Myocardial Infarction (CT ) Additional Family Medical History / Comment(s): Father had CABG, AAA repair, AICD, CCath with stenting. Mother Family Medical History: Diabetes Mellitus, Hypertension, Thyroid Disorder General Exam Limitations: no limitations General appearance: alert, in no apparent distress Head exam: Present: atraumatic, normocephalic, normal inspection Eye exam: Present: normal appearance, PERRL, EOMI. Absent: scleral icterus, conjunctival injection, periorbital swelling ENT exam: Present: normal exam, mucous membranes moist Neck exam: Present: normal inspection. Absent: tenderness, meningismus, lymphadenopathy Respiratory exam: Present: normal lung sounds bilaterally. Absent: respiratory distress, wheezes, rales, rhonchi, stridor Cardiovascular Exam: Present: regular rate, normal rhythm, normal heart sounds. Absent: systolic murmur, diastolic murmur, rubs, gallop, clicks GI/Abdominal exam: Present: soft, tenderness (LLQ), normal bowel sounds. Absent: guarding, rigid Extremities exam: Present: normal inspection, full ROM, normal capillary refill. Absent: tenderness, pedal edema, joint swelling, calf tenderness Back exam: Present: normal inspection Neurological exam: Present: alert, oriented X3, CN II-XII intact Psychiatric exam: Present: normal affect, normal mood Skin exam: Present: warm, dry, intact, normal color. Absent: rash Course Vital Signs 07/24/23 07/24/23 07/24/23 09:46 12:20 13:16 Temperature 98.8 F 98.1 F Pulse Rate 87 67 68 Respiratory 16 18 18 Rate Blood Pressure 128/76 117/60 113/73 O2 Sat by Pulse 99 98 98 Oximetry Medical Decision Making - Medical Decision Making Was pt. sent in by a medical professional or institution (, [facility], [employer], urgent care, hospital, or skilled nursing...) When possible be specific @ -No Did you speak to anyone other than the patient for history (EMS, parent, family, police, friend...)? What history was obtained from this source @ -No Did you review nursing and triage notes (agree or disagree)? Why? @ -I reviewed and agree with nursing and triage notes Were old charts reviewed (outside hosp., previous admission, EMS record, old EKG, old radiological studies, urgent care reports/EKG's, skilled nursing records)? Report findings @ -No old charts were reviewed Differential Diagnosis (chest pain, altered mental status, abdominal pain women, abdominal pain men, vaginal bleeding, weakness, fever, dyspnea, syncope, headache, dizziness, GI bleed, back pain, seizure, CVA, palpatations, mental health, musculoskeletal)? @ -Differential Abdominal Pain Women: Appendicitis, Cholecystitis, diverticulosis, ischemic bowel, pancreatitis, hepatitis, UTI, gastroenteritis, AAA, incarcerated hernia, bowel obstruction, constipation, inflammatory bowel, hepatitis, peptic ulcer disease, splenic infa rction, perforated viscus, vulvitis, ovarian torsion, PID, kidney stone, placenta abruption, this is not meant to be an all-inclusive list EKG interpreted by me (3pts min.). @ -None X-rays interpreted by me (1pt min.). @ -None done CT interpreted by me (1pt min.). @ -CT abdomen pelvis with contrast reveals mild circumferential wall thickening in the sigmoid colon, colonic diverticulosis U/S interpreted by me (1pt. min.). @ -None done What testing was considered but not performed or refused? (CT, X-rays, U/S, labs)? Why? @ -None What meds were considered but not given or refused? Why? @ -None Did you discuss the management of the patient with other professionals (susie maya ilatrell. HUMAIRA Haywood, CONCRETE [employer], lab, RT, psych nurse, social media marketing manager, director emergency services, teacher, electronic warfare officer, case fitter)? Give summary @ -No Was smoking cessation discussed for >3mins.? @ -No Was critical care preformed (if so, how long)? @ -No Were there social determinants of health that impacted care today? How? (Homelessness, low income, unemployed, alcoholism, drug addiction, transportation, low edu. Level, literacy, decrease access to med. care, long term, rehab)? @ -No Was there de-escalation of care discussed even if they declined (Discuss DNR or withdrawal of care, Hospice)? DNR status @ -No What co-morbidities impacted this encounter? (DM, HTN, Smoking, COPD, CAD, Cancer, CVA, ARF, Chemo, Hep., AIDS, mental health diagnosis, sleep apnea, morbid obesity)? @ -None Was patient admitted / discharged? Hospital course, mention meds given and route, prescriptions, significant lab abnormalities, going to OR and other pertinent info. @ -83-year-old female with complaint of left lower quadrant abdominal pain. Patient patient noted to have left lower quadrant abdominal pain, abdomen is sof t no rebound tenderness or rigidity noted. Patient will be evaluated with abdominal labs and CT imaging of the abdomen patient given IV pain medication. Patient is agreement with plan. Evaluation, patient states that her pain has improved after medication. Review findings with patient he is confirming for colitis. CBC reveals a mildly elevated white blood cell count of 11.2. Coagulation profile and CMP within normal limits. Amylase lipase nonelevated. Urinalysis no signs of infection. Additionally, patient's labs reveal a mildly elevated white blood cell count of patient has not been experiencing fevers and lactate is not elevated. Due to these findings patient is a candidate for out patient treatment with oral antibiotics. Patient is in agreement with this plan. Recommend follow-up with her primary care provider in the next 3 days for further evaluation and potential colonoscopy. Strict return parameters discussed with the patient such as worsening abdominal pain, worsening diarrhea, fevers and nausea and vomiting report back to the emergency room. Patient expresses understanding. Stable for discharge. Case discussed with Dr. Verdugo Undiagnosed new problem with uncertain prognosis? @ -No Drug Therapy requiring intensive monitoring for toxicity (Heparin, Nitro, Insulin, Cardizem)? @ -No Were any procedures done? @ -No Diagnosis/symptom? @ -Colitis Acute, or Chronic, or Acute on Chronic? @ -Acute Uncomplicated (without systemic symptoms) or Complicated (systemic symptoms)? @ -Uncomplicated Side effects of treatment? @ -No Exacerbation, Progression, or Severe Exacerbation? @ -No Poses a threat to life or bodily function? How? (Chest pain, USA, CT, pneumonia, PE, COPD, DKA, ARF, appy, cholecystitis, CVA, Diverticulitis, Homicidal, Suicidal, threat to staff... and all critical care pts) @ -No - Lab Data Result diagrams: 07/24/23 10:42 07/24/23 10:42 Lab Results 07/24/23 07/24/23 07/24/23 Range/Units 10:42 10:42 10:42 WBC 11.2 H (3.8-10.6) k/uL RBC 5.06 (3.80-5.40) m/uL Hgb 14.8 (11.4-16.0) gm/dL Hct 44.7 (34.0-46.0) % MCV 88.2 (80.0-100.0) fL MCH 29.1 (25.0-35.0) pg MCHC 33.0 (31.0-37.0) g/dL RDW 13.5 (11.5-15.5) % Plt Count 409 (150-450) k/uL MPV 7.4 Neutrophils % 69 % Lymphocytes % 21 % Monocytes % 5 % Eosinophils % 4 % Basophils % 1 % Neutrophils # 7.7 (1.3-7.7) k/uL Lymphocytes # 2.4 (1.0-4.8) k/uL Monocytes # 0.5 (0-1.0) k/uL Eosinophils # 0.4 (0-0.7) k/uL Basophils # 0.1 (0-0.2) k/uL PT 10.0 (10.0-12.5) sec INR 0.9 (<1.2) APTT 25.1 (22.0-30.0) sec Sodium 139 (137-145) mmol/L Potassium 4.4 (3.5-5.1) mmol/L Chloride 106 (98-107) mmol/L Carbon Dioxide 23 (22-30) mmol/L Anion Gap 10 mmol/L BUN 19 H (7-17) mg/dL Creatinine 0.78 (0.52-1.04) mg/dL Est GFR (CKD-EPI)AfAm >90 (>60 ml/min/1.73 sqM) Est GFR (CKD-EPI)NonAf 82 (>60 ml/min/1.73 sqM) Glucose 113 H (74-99) mg/dL Plasma Lactic Acid Noe (0.7-2.0) mmol/L Calcium 10.2 (8.4-10.2) mg/dL Total Bilirubin 0.8 (0.2-1.3) mg/dL AST 45 H (14-36) U/L ALT 105 H (4-34) U/L Alkaline Phosphatase 112 (38-126) U/L Total Protein 8.2 (6.3-8.2) g/dL Albumin 4.7 (3.5-5.0) g/dL Amylase 41 (30-110) U/L Lipase 92 (23-300) U/L Urine Color Urine Appearance (Clear) Urine pH (5.0-8.0) Ur Specific [place] (1.001-1.035) Urine Protein (Negative) Urine Glucose (UA) (Negative) Urine Ketones (Negative) Urine Blood (Negative) Urine Nitrite (Negative) Urine Bilirubin (Negative) Urine Urobilinogen (<2.0) mg/dL Ur Leukocyte Esterase (Negative) Urine RBC (0-5) /hpf Urine WBC (0-5) /hpf Ur Squamous Epith Cells (0-4) /hpf Urine Mucus (None) /hpf 07/24/23 07/24/23 Range/Units 10:42 12:51 WBC (3.8-10.6) k/uL RBC (3.80-5.40) m/uL Hgb (11.4-16.0) gm/dL Hct (34.0-46.0) % MCV (80.0-100.0) fL MCH (25.0-35.0) pg MCHC (31.0-37.0) g/dL RDW (11.5-15.5) % Plt Count (150-450) k/uL MPV Neutrophils % % Lymphocytes % % Monocytes % % Eosinophils % % Basophils % % Neutrophils # (1.3-7.7) k/uL Lymphocytes # (1.0-4.8) k/uL Monocytes # (0-1.0) k/uL Eosinophils # (0-0.7) k/uL Basophils # (0-0.2) k/uL PT (10.0-12.5) sec INR (<1.2) APTT (22.0-30.0) sec Sodium (137-145) mmol/L Potassium (3.5-5.1) mmol/L Chloride (98-107) mmol/L Carbon Dioxide (22-30) mmol/L Anion Gap mmol/L BUN (7-17) mg/dL Creatinine (0.52-1.04) mg/dL Est GFR (CKD-EPI)AfAm (>60 ml/min/1.73 sqM) Est GFR (CKD-EPI)NonAf (>60 ml/min/1.73 sqM) Glucose (74-99) mg/dL Plasma Lactic Acid Noe 1.2 (0.7-2.0) mmol/L Calcium (8.4-10.2) mg/dL Total Bilirubin (0.2-1.3) mg/dL AST (14-36) U/L ALT (4-34) U/L Alkaline Phosphatase (38-126) U/L Total Protein (6.3-8.2) g/dL Albumin (3.5-5.0) g/dL Amylase (30-110) U/L Lipase (23-300) U/L Urine Color Light Yellow Urine Appearance Clear (Clear) Urine pH 6.0 (5.0-8.0) Ur Specific [place] >1.050 H (1.001-1.035) Urine Protein Trace H (Negative) Urine Glucose (UA) Negative (Negative) Urine Ketones Negative (Negative) Urine Blood Trace H (Negative) Urine Nitrite Negative (Negative) Urine Bilirubin Negative (Negative) Urine Urobilinogen <2.0 (<2.0) mg/dL Ur Leukocyte Esterase Trace H (Negative) Urine RBC 2 (0-5) /hpf Urine WBC 4 (0-5) /hpf Ur Squamous Epith Cells 3 (0-4) /hpf Urine Mucus Rare H (None) /hpf Disposition Clinical Impression: Colitis, Abdominal pain, Bloody diarrhea Narrative: Return to the emergency department if your symptoms worsen or do not improve. Complete full course of antibiotics as prescribed. Follow-up with your primary care provider within the next 3 days for further evaluation. Disposition: HOME SELF-CARE Condition: Good Instructions (If sedation given, give patient instructions): Colitis (ED) Prescriptions: metroNIDAZOLE [Flagyl] 500 mg PO TID #30 tab Is patient prescribed a controlled substance at d/c from ED?: No Referrals: Kalia Sanchez DO [Primary Care Provider] - 1-2 days Time of Disposition: 12:57
[2023-07-24] MEDS: KETOROLAC 15 MG/ML 1 ML VIAL IVP STA (10:37)
[2023-07-24 11:12] LABS: Basophils # (A) 0.1 k/uL (0-0.2); Basophils % (A) 1 %; Eosinophils # (A) 0.4 k/uL (0-0.7); Eosinophils % (A) 4 %; HCT 44.7 % (34.0-46.0); HGB 14.8 gm/dL (11.4-16.0); Lymphocytes # (A) 2.4 k/uL (1.0-4.8); Lymphocytes % (A) 21 %; MCH 29.1 pg (25.0-35.0); MCV 88.2 fL (80.0-100.0); Mean Platelet Volume 7.4; Monocytes # (A) 0.5 k/uL (0-1.0); Monocytes % (A) 5 %; Neutrophils # (A) 7.7 k/uL (1.3-7.7); Neutrophils % (A) 69 %; Platelet Count 409 k/uL (150-450); RBC 5.06 m/uL (3.80-5.40); RDW 13.5 % (11.5-15.5); WBC 11.2 k/uL (3.8-10.6)
[2023-07-24 11:24] LABS: INR 0.9 (<1.2); Partial Thromboplastin Time 25.1 sec (22.0-30.0)
[2023-07-24 11:30] LABS: ALT 105 U/L (4-34); AST 45 U/L (14-36); African American GFR (CKD) >90 (>60 ml/min/1.73 sqM); Albumin 4.7 g/dL (3.5-5.0); Alkaline Phosphatase 112 U/L (38-126); Amylase 41 U/L (30-110); Anion Gap 10 mmol/L; Blood Urea Nitrogen 19 mg/dL (7-17); Calcium 10.2 mg/dL (8.4-10.2); Carbon Dioxide 23 mmol/L (22-30); Chloride 106 mmol/L (98-107); Glucose 113 mg/dL (74-99); Lipase 92 U/L (23-300); Non-African American GFR(CKD) 82 (>60 ml/min/1.73 sqM); Potassium 4.4 mmol/L (3.5-5.1); Sodium 139 mmol/L (137-145); Total Bilirubin 0.8 mg/dL (0.2-1.3); Total Protein 8.2 g/dL (6.3-8.2)
[2023-07-24 12:36] VITALS: RESP 18
--- NOTE | 2023-07-24 12:36 | CT ---
EXAMINATION TYPE: CT abdomen pelvis w con CT DLP: 1203.9 mGycm, Automated exposure control for dose reduction was used. DATE OF EXAM: 07/24/2023 12:13 PM COMPARISON: 09/21/2010 CLINICAL INDICATION:Female, 63 years old with history of LLQ pain, bloody stool; LLQ pain, bloody sto ol TECHNIQUE: Axial CT abdomen pelvis w con;Sagittal and coronal reformats were created on a separate w orkstation. Contrast used:100 mL of Isovue 300 with IV Contrast, (none if empty) Oral contrast used: without Oral Contrast (none if empty) FINDINGS: LOWER CHEST: Unremarkable ABDOMEN LIVER: Unremarkable GALLBLADDER AND BILE DUCTS: Gallbladder surgically absent. PANCREAS: Unremarkable. SPLEEN: Unremarkable. ADRENAL GLANDS: Unremarkable. KIDNEYS AND URETERS: No evidence of hydronephrosis or renal calculus. The ureters are unremarkable. PELVIS BLADDER: Unremarkable REPRODUCTIVE: Unremarkable. ABDOMEN & PELVIS STOMACH AND BOWEL: No evidence of bowel obstruction. Scattered colonic diverticula. The appendix is n ormal. There is mild circumferential wall thickening in the sigmoid colon extending approximately 43 mm in length with wall thickness up to 12 mm. PERITONEUM/RETROPERITONEUM: No evidence of pneumoperitoneum or free fluid. VASCULATURE: No evidence of aortic aneurysm. MUSCULOSKELETAL: No acute osseous abnormalities LYMPH NODES: No gross evidence for lymphadenopathy. SOFT TISSUE/ABDOMINAL WALL: Fat-containing umbilical hernia. IMPRESSION: 1. There is mild circumferential wall thickening in the sigmoid colon extending approximately 43 mm in length and wall thickness up to 12 mm. Differential includes focal colitis versus underlying malig lexi. Consider short-term follow-up and/or colonoscopy if not recently performed. 2. Colonic diverticulosis.
[2023-07-24 13:09] LABS: Appearance,Urine Clear (Clear); Bilirubin,Urine Negative (Negative); Blood,Urine Trace (Negative); Color,Urine Light Yellow; Glucose,Urine (UA) Negative (Negative); Ketones,Urine Negative (Negative); Leukocyte Esterase,Urine Trace (Negative); Mucus,Urine Rare /hpf; Nitrite,Urine Negative (Negative); Protein,Urine Trace (Negative); RBC,Urine 2 /hpf (0-5); Squamous Epithelial Cell,Urine 3 /hpf (0-4); Urobilinogen,Urine <2.0 mg/dL (<2.0); WBC,Urine 4 /hpf (0-5)
[2023-07-24 13:14] LABS: Specific Gravity,Urine >1.050 (1.001-1.035)
[2023-07-24 13:35] VITALS: BP 113/73; PULSE 68; TEMP 98.1
== END 2023-07-24 13:17 | disposition home or self-care (01) ==
LOC: EC 09:44
DX: K52.9 Noninfective gastroenteritis and colitis, unspecified (principal); K57.32 Diverticulitis of large intestine without perforation or abscess without bleeding; Z88.1 Allergy status to other antibiotic agents
CPT/HCPCS: 99284; 96374; 36415; 80053; 82150; 83605; 83690; 85025; 85610; 85730; 81001; 74177; J1885; Q9967

== ENCOUNTER → 2024-02-19 | Outpatient (CLI) | payer MEDICAID ==
--- NOTE | 2024-02-19 18:34 | CT ---
EXAMINATION TYPE: CT abdomen pelvis w con DATE OF EXAM: 02/19/2024 6:16 PM COMPARISON: CT abdomen pelvis most recent from 07/24/2023 CLINICAL INDICATION: Female, 63 years old with history of R10.9 UNSPECIFIED ABDOMINAL R93.5 ABN FINDI NGS ON; thickened bowel TECHNIQUE: Axial CT abdomen pelvis w con;Sagittal and coronal reformats were created on a separate w orkstation. Contrast used:100ml mL of Isovue 300 with IV Contrast, (none if empty) Oral contrast used: with Oral Contrast (none if empty) CT DLP: 1033 mGycm, Automated exposure control for dose reduction was used. FINDINGS: LOWER CHEST: Unremarkable ABDOMEN LIVER: Unremarkable GALLBLADDER AND BILE DUCTS: The gallbladder is surgically absent. PANCREAS: Unremarkable. SPLEEN: Unremarkable. ADRENAL GLANDS: Unremarkable. KIDNEYS AND URETERS: No evidence of hydronephrosis or renal calculus. The ureters are unremarkable. PELVIS BLADDER: No evidence for wall thickening or mass given limitations of exam. REPRODUCTIVE: Unremarkable. ABDOMEN & PELVIS STOMACH AND BOWEL: No evidence of bowel obstruction. Scattered colonic diverticula. The appendix is n ormal. PERITONEUM/RETROPERITONEUM: No evidence of pneumoperitoneum or free fluid. VASCULATURE: No evidence of aortic aneurysm. MUSCULOSKELETAL: No acute osseous abnormalities LYMPH NODES: No gross evidence for lymphadenopathy. SOFT TISSUE/ABDOMINAL WALL: Unremarkable IMPRESSION: 1. Wall thickening seen on prior is not visualized suggesting nondistention on prior. 2. No evidence for acute process. 3. Small hiatal hernia. 4. Colonic diverticulosis. 5. Cholecystectomy changes. [facility], , 02/19/2024 6:31 PM
== END | disposition home or self-care (01) ==
LOC: RADCTMAIN 15:45
PROVIDERS: ATTEND Internal Medicine
DX: K44.9 Diaphragmatic hernia without obstruction or gangrene (principal); K57.30 Diverticulosis of large intestine without perforation or abscess without bleeding; R93.5 Abnormal findings on diagnostic imaging of other abdominal regions, including retroperitoneum; Z90.49 Acquired absence of other specified parts of digestive tract
CPT/HCPCS: 74177; Q9967